=== PATIENT | male | born 1955 | race Caucasian/White ===

== ENCOUNTER → 2017-07-26 | Outpatient (CLI) | payer OTHER ==
[2017-07-26 09:20] LABS: INR 3.3 (<1.2)
[2017-07-26 09:21] LABS: Prothrombin Time 29.2 sec (9.0-12.0)
[2017-07-26 09:27] LABS: ALT 34 U/L (21-72); AST 21 U/L (17-59); Albumin 4.6 g/dL (3.5-5.0); Alkaline Phosphatase 93 U/L (38-126); Anion Gap 12 mmol/L; Blood Urea Nitrogen 10 mg/dL (9-20); Calcium 10.1 mg/dL (8.4-10.2); Carbon Dioxide 28 mmol/L (22-30); Chloride 102 mmol/L (98-107); Cholesterol 139 mg/dL (<200); Glucose 109 mg/dL (74-99); HDL Cholesterol 43 mg/dL (40-60); LDL Cholesterol,Calculated 73 mg/dL (0-99); Potassium 4.1 mmol/L (3.5-5.1); Sodium 142 mmol/L (137-145); Total Bilirubin 0.6 mg/dL (0.2-1.3); Total Protein 7.5 g/dL (6.3-8.2); Triglycerides 113 mg/dL (<150)
== END | disposition home or self-care (01) ==
LOC: LABWHC1 08:34
PROVIDERS: ATTEND Internal Medicine Clinical Cardiac Electrophysiology
DX: I48.91 Unspecified atrial fibrillation (principal); Z79.899 Other long term (current) drug therapy
CPT/HCPCS: 36415; 80053; 80061; 84443; 85610

== ENCOUNTER → 2017-08-01 | Outpatient (CLI) | payer OTHER ==
--- NOTE | 2017-08-01 12:57 | CT ---
EXAMINATION TYPE: CT chest wo con DATE OF EXAM: 08/01/2017 COMPARISON: NONE HISTORY: SOB, pain CT DLP: 240 mGycm, Automated exposure control for dose reduction was used. CONTRAST: None. TECHNIQUE: High-resolution images were obtained at 1 mm thick sections at 10 mm intervals. This will create some limitation on the interpretation. Imaging is performed in the prone and supine views. FINDINGS: Portion of the thyroid visualized is normal. No suspicious lung nodules or focal infiltrates are present. No bronchiectasis is evident. Some perib ronchial thickening may be present compatible some mild chronic bronchitis. No discrete masses are ev ident. No enlarged mediastinal or hilar adenopathy is evident. Shotty mediastinal adenopathy is present. T he ascending aorta diameter at the level of the main pulmonary artery is 3.5 cm. The main pulmonary artery diameter at the bifurcation is 3.[address] sections are obtained through the upper abdomen. Abdomen is essentially unremarkable. IMPRESSIONS: 1. Some mild chronic bronchitis is not excluded. 2. Suspicious acute changes are not evident.
== END | disposition home or self-care (01) ==
LOC: RADCTMAIN 07:22
PROVIDERS: ATTEND Internal Medicine Clinical Cardiac Electrophysiology
DX: I48.91 Unspecified atrial fibrillation (principal); R06.02 Shortness of breath; R07.9 Chest pain, unspecified; Z79.899 Other long term (current) drug therapy
CPT/HCPCS: 71250

== ENCOUNTER 2019-01-15 09:07 | Observation (INO) | payer OTHER ==
[2019-01-15] MEDS ORDERED: KETOROLAC 30 MG/ML 1 ML VIAL IVP STA (09:37)
--- NOTE | 2019-01-15 09:41 | ED ---
Chest Pain HPI - General Chief Complaint: Chest Pain Stated Complaint: chest pain Time Seen by Provider: 01/15/19 09:32 Source: patient, EMS, RN notes reviewed Mode of arrival: EMS Limitations: no limitations - History of Present Illness Initial Comments: This a 63-year-old male presents emergency Department with chief complaint of chest discomfort. Patient states pain started this morning left-sided his chest. Patient had recurrent chest pain in which she does see Dr. Kj Mckeon. Patient's had A. fib in the past. Patient states he was recently taken off amiodarone. Patient states that he was told neck 70 started having symptoms that he may need a pacemaker. Patient does have a history of hyperlipidemia hypertension. Patient denies any nausea vomiting diarrhea constipation. Patient states that the nitro given by EMS did help he was also given aspirin. Patient denies any current shortness of breath. Patient does take Coumadin daily secondary to his chronic A. fib. - Related Data Home Medications Medication Instructions Recorded Confirmed Lisinopril [Zestril] 5 mg PO QAM 02/27/14 01/15/19 Spironolactone [Aldactone] 25 mg PO QAM 10/07/15 01/15/19 Warfarin Sodium [Coumadin] 5 mg PO QAM 03/03/16 01/15/19 Atorvastatin [Lipitor] 10 mg PO HS 01/15/19 01/15/19 Allergies Allergy/AdvReac Type Severity Reaction Status Date / Time No Known Allergies Allergy Verified 01/15/19 09:43 Review of Systems ROS Statement: Those systems with pertinent positive or pertinent negative responses have been documented in the HPI. ROS Other: All systems not noted in ROS Statement are negative. EKG Findings - EKG Comments: EKG Findings:: EKG 49:32 sinus tachycardia rate of 128 WA 168 QRS 104 QT/QTC 328/478 Past Medical History Past Medical History: Atrial Fibrillation, Chest Pain / Angina, Hyperlipidemia, Hypertension Additional Past Medical History / Comment(s): See Dr Radford's h&p for cardiac history 03/03/16. Afib, Ablations x 4, PAOLA does not tolerate CPAP. History of Any Multi-Drug Resistant Organisms: None Reported Past Surgical History: Cardiac Ablation, Orthopedic Surgery Additional Past Surgical History / Comment(s): arthroscopic left knee sx, colonoscopy with benign polyps removed from colon, 4 cardiac ablations, TEEs. Past Anesthesia/Blood Transfusion Reactions: No Reported Reaction Past Psychological History: No Psychological Hx Reported Smoking Status: Former smoker Past Alcohol Use History: None Reported Past Drug Use History: Marijuana - Past Family History Father Family Medical History: Cancer Additional Family Medical History / Comment(s): Father of prostate cancer. Mother Family Medical History: Dementia General Exam Limitations: no limitations General appearance: alert, in no apparent distress, anxious Head exam: Present: atraumatic, normocephalic, normal inspection Eye exam: Present: normal appearance, PERRL, EOMI. Absent: scleral icterus, conjunctival injection, periorbital swelling ENT exam: Present: normal exam, normal oropharynx, mucous membranes moist Neck exam: Present: normal inspection, full ROM. Absent: tenderness, meningismus, lymphadenopathy Respiratory exam: Present: normal lung sounds bilaterally, chest wall tenderness (Left anterior chest wall tenderness). Absent: respiratory distress, wheezes, rales, rhonchi, stridor Cardiovascular Exam: Present: normal rhythm, tachycardia (Patient is very anxious), normal heart sounds. Absent: regular rate, systolic murmur, diastolic murmur, rubs, gallop, clicks GI/Abdominal exam: Present: soft, normal bowel sounds. Absent: distended, tenderness, guarding, rebound, rigid Course Vital Signs 01/15/19 01/15/19 01/15/19 09:08 09:49 10:06 Temperature 98.0 F Pulse Rate 129 H 120 H Pulse Rate [ 128 H Stock Checker ] Respiratory 18 22 Rate Blood Pressure 97/74 95/79 O2 Sat by Pulse 98 96 Oximetry Chest Pain [facility] 53-year-old male presented for chest discomfort. Patient had recurrent chest pain which she's been evaluated by cardiology with a history of A. fib. Patient came in sinus tachycardia pain relieved with nitro. Patient be admitted for chest pain observation and cardiology evaluation. Disposition Clinical Impression: Chest pain Disposition: ADMITTED IP TO THIS [facility] Condition: Fair Referrals: Randell Christian MD [Primary Care Provider] - 1-2 days
[2019-01-15 10:02] LABS: Basophils % (A) 0 %; Eosinophils # (A) 0.1 k/uL (0-0.7); Eosinophils % (A) 1 %; HCT 46.1 % (39.0-53.0); HGB 15.9 gm/dL (13.0-17.5); Lymphocytes # (A) 2.4 k/uL (1.0-4.8); Lymphocytes % (A) 26 %; MCH 30.9 pg (25.0-35.0); MCHC 34.4 g/dL (31.0-37.0); MCV 89.8 fL (80.0-100.0); Mean Platelet Volume 10.2; Monocytes # (A) 0.5 k/uL (0-1.0); Monocytes % (A) 6 %; Neutrophils # (A) 5.9 k/uL (1.3-7.7); Neutrophils % (A) 65 %; Platelet Count 311 k/uL (150-450); RBC 5.13 m/uL (4.30-5.90); RDW 14.2 % (11.5-15.5); WBC 9.1 k/uL (3.8-10.6)
--- NOTE | 2019-01-15 10:41 | XR ---
EXAMINATION TYPE: XR chest 2V DATE OF EXAM: 01/15/2019 COMPARISON: 02/11/2016 TECHNIQUE: PA and lateral views submitted. HISTORY: Chest pain FINDINGS: The lungs are clear and there is no pneumothorax, pleural effusion, or focal pneumonia. Hyperinflat ion suggests COPD in the heart is mildly prominent. Upper atrophic and degenerative changes of the sp ine. IMPRESSION: 1. No acute process.
[2019-01-15 11:09] LABS: ALT 24 U/L (21-72); AST 25 U/L (17-59); African American GFR (CKD) >90 (>60 ml/min/1.73 sqM); Albumin 3.9 g/dL (3.5-5.0); Alkaline Phosphatase 85 U/L (38-126); Anion Gap 10 mmol/L; Blood Urea Nitrogen 11 mg/dL (9-20); Calcium 9.4 mg/dL (8.4-10.2); Carbon Dioxide 20 mmol/L (22-30); Chloride 110 mmol/L (98-107); Glucose 109 mg/dL (74-99); Magnesium 1.9 mg/dL (1.6-2.3); Non-African American GFR(CKD) >90 (>60 ml/min/1.73 sqM); Potassium 3.9 mmol/L (3.5-5.1); Sodium 140 mmol/L (137-145); Total Bilirubin 0.8 mg/dL (0.2-1.3); Total Protein 6.7 g/dL (6.3-8.2)
[2019-01-15 11:18] LABS: INR 3.3 (<1.2); Partial Thromboplastin Time 36.4 sec (22.0-30.0); Prothrombin Time 31.6 sec (9.0-12.0)
[2019-01-15] MEDS ORDERED: NITROGLYCERIN SL TABS 0.4 MG TAB SUBLINGUAL PRN (11:35)
[2019-01-15 13:39] VITALS: BMI 32.1
--- NOTE | 2019-01-15 15:48 | P.CRDCN ---
History of Present Illness History of present illness: This is a pleasant 63-year-old male past medical history significant for atrial fibrillation status post ablation, hypertension, NSVT, dyslipidemia and obstructive sleep apnea. He follows in the office with Dr. Anna. We have been asked to see him in consultation secondary to chest discomfort. He states he was woken up abruptly at 6:30 this morning with discomfort in his ch est described as a pounding punching feeling. He states it felt like a very hard thump in the left precordial region. This was associated with significant shortness of breath. He states he notified EMS and upon arrival to give him some more nitroglycerin which subsided his chest discomfort. He follows very closely with Dr. Anna in the office. He has been on flecanide, sotolol and amiodarone in the past with no success at controlling his atrial fibrillation. He has also undergone 5 ablations in the past starting in 2005 with an EP study and ablation of the supraventricular tachycardia/atrial fibrillation; 2006 EP study, mapping and radiofrequency ablation of atrial fibrillation; 2007 EP study, radiofrequency ablation of the left atrial appendage and radiofrequency ablation to isolate all 4 pulmonary veins; 2011 arterial isolation of the left- sided veins, 3-D mapping of the left atrium, right atrium and coronary sinus, radiofrequency ablation of atrial tachycardia focus; and 2014 diagnostic EP study revealing typical atrial flutter and successful radiofrequency ablation for atrial flutter. EKG reveals atrial tachycardia or atrial flutter with 2:1 conduction heart rate 128 with first degree AV block. Chest x-ray is negative for acute cardiopulmonary process. Laboratory data reviewed, cardiac enzymes negative 1, INR 3.3, WBC 9.1, hemoglobin 15.9, platelets 311, sodium 140, potassium 3.9, creatinine 0.76 magnesium 1.9. Current cardiac medications include lisinopril 5 mg daily, Aldactone 25 mg daily, atorvastatin 20 mg daily and Coumadin. Most recent stress test performed in the office March 2018 was a Cardiolite stress test was negative for reversible cardiac ischemia. At the time of my exam: CONSTITUTIONAL: Denies fever. Denies chills. EYES: Denies blurred vision. Denies vision changes. Denies eye pain. EARS, NOSE, MOUTH & THROAT: Denies headache. Denies sore throat. Denies ear pain. CARDIOVASCULAR: Denies chest pain. Denies shortness of breath. Denies orthopnea. Denies PND. Denies palpitations. RESPIRATORY: Denies cough. GASTROINTESTINAL: Denies abdominal pain. Denies diarrhea. Denies constipation. Denies nausea. Denies vomiting. MUSCULOSKELETAL: Denies myalgias. INTEGUMENTARY: Denies pruitis. Denies rash. NEUROLOGIC: Denies numbness. Denies tingling. Denies weakness. PSYCHIATRIC: Denies anxiety. Denies depression. ENDOCRINE: Denies fatigue. Denies weight change. Denies polydipsia. Denies polyurina. GENITOURINARY: Denies burning, hematuria or urgency with micturation. HEMATOLOGIC: Denies history of anemia. Denies bleeding. Blood pressure 114/84 heart rate 127 afebrile maintaining oxygen saturation on room air GENERAL: This is a 63-year-old male in no apparent distress at the time of my examination. HEENT: Head is atraumatic, normocephalic. Pupils are equal, round. Sclerae anicteric. Conjunctivae are clear. Mucous membranes of the mouth are moist. Neck is supple. There is no jugular venous distention. No carotid bruit is heard. LUNGS: Clear to auscultation no wheezes, rales or rhonchi. No chest wall tenderness is noted on palpation or with deep breathing. HEART: Regular rate and rhythm without murmurs, rubs or gallops. S1 and S2 heard. ABDOMEN: Soft, nontender. Bowel sounds are heard. No organomegaly noted. EXTREMITIES: No evidence of peripheral edema and no calf tenderness noted. VASCULAR: Radial and dorsalis pedis pulses palpated, no evidence of clubbing. NEUROLOGIC: Patient is awake, alert and oriented x3. ASSESSMENT Chest pain, atypical for angina. Recent stress test normal in the office 03/2018. Paroxysmal atrial fibrillation s/p ablation Hypertension Dyslipidemia Obstructive sleep apnea PLAN Initiate on multaq 400 mg BID. We will ask case management to check the monthly cost for the patient. Continue to obtain serial cardiac enzymes to rule out an acute event. Repeat echocardiogram and doppler study to assess cardiac structure and function. Further recommendations to follow based on clinical course. Thank you kindly for this consultation. Nurse Practitioner note has been reviewed, I agree with a documented findings and plan of care. Patient was seen and examined. . Past Medical History Past Medical History: Atrial Fibrillation, Chest Pain / Angina, Hyperlipidemia, Hypertension Additional Past Medical History / Comment(s): See Dr Radford's h&p for cardiac history 03/03/16. Afib, Ablations x 5, PAOLA does not tolerate CPAP. History of Any Multi-Drug Resistant Organisms: None Reported Past Surgical History: Cardiac Ablation, Orthopedic Surgery Additional Past Surgical History / Comment(s): arthroscopic left knee sx, colonoscopy with benign polyps removed from colon, 5 cardiac ablations, TEEs. 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 Smoking Status: Former smoker Past Alcohol Use History: None Reported Additional Past Alcohol Use History / Comment(s): Pt states he started smoking in 2008 and quit in 2014. Past Drug Use History: Marijuana Additional Drug Use History / Comment(s): SMOKED MARIJUANA OCC IN THE PAST - Past Family History Father Family Medical History: Cancer Additional Family Medical History / Comment(s): Father of prostate cancer. Mother Family Medical History: Dementia Medications and Allergies Home Medications Medication Instructions Recorded Confirmed Type Lisinopril [Zestril] 5 mg PO QAM 02/27/14 01/15/19 History Spironolactone [Aldactone] 25 mg PO QAM 10/07/15 01/15/19 History Warfarin Sodium [Coumadin] 5 mg PO QAM 03/03/16 01/15/19 History Atorvastatin [Lipitor] 10 mg PO HS 01/15/19 01/15/19 History Dronedarone [Multaq] 400 mg PO AC-BID #60 tab 01/15/19 Rx Allergies Allergy/AdvReac Type Severity Reaction Status Date / Time No Known Allergies Allergy Verified 01/15/19 09:43 Physical Exam Vitals: Vital Signs Temp Pulse Pulse Pulse Resp BP BP 01/15/19 13:12 98.1 F 127 H 17 114/84 01/15/19 13:02 98.2 F 118 H 18 111/84 01/15/19 12:09 114 H 20 123/85 01/15/19 10:06 120 H 22 95/79 01/15/19 09:49 128 H 01/15/19 09:08 98.0 F 129 H 18 97/74 Pulse Ox 01/15/19 13:12 97 01/15/19 13:02 97 01/15/19 12:09 98 01/15/19 10:06 96 01/15/19 09:49 01/15/19 09:08 98 Intake and Output 01/14/19 01/15/19 01/15/19 22:59 06:59 14:59 Other: # Voids 1 Weight 98.792 kg Results 01/15/19 09:25 01/15/19 10:25 Cardiac Enzymes 01/15/19 01/15/19 Range/Units 10:25 10:25 AST 25 (17-59) U/L Troponin I <0.012 (0.000-0.034) ng/mL Coagulation 01/15/19 Range/Units 09:25 PT 31.6 H (9.0-12.0) sec APTT 36.4 H (22.0-30.0) sec CBC 01/15/19 Range/Units 09:25 WBC 9.1 (3.8-10.6) k/uL RBC 5.13 (4.30-5.90) m/uL Hgb 15.9 (13.0-17.5) gm/dL Hct 46.1 (39.0-53.0) % Plt Count 311 (150-450) k/uL Comprehensive Metabolic Panel 01/15/19 Range/Units 10:25 Sodium 140 (137-145) mmol/L Potassium 3.9 (3.5-5.1) mmol/L Chloride 110 H (98-107) mmol/L Carbon Dioxide 20 L (22-30) mmol/L BUN 11 (9-20) mg/dL Creatinine 0.76 (0.66-1.25) mg/dL Glucose 109 H (74-99) mg/dL Calcium 9.4 (8.4-10.2) mg/dL AST 25 (17-59) U/L ALT 24 (21-72) U/L Alkaline Phosphatase 85 (38-126) U/L Total Protein 6.7 (6.3-8.2) g/dL Albumin 3.9 (3.5-5.0) g/dL Current Medications Generic Name Dose Route Start Last Admin Trade Name Freq PRN Reason Stop Dose Admin Aspirin 325 mg 01/16/19 09:00 Aspirin PO DAILY [facility] Lisinopril 5 mg 01/16/19 09:00 Zestril PO QAM [facility] Nitroglycerin 0.4 mg 01/15/19 11:35 Nitrostat SUBLINGUAL Q5M PRN Chest Pain Spironolactone 25 mg 01/16/19 09:00 Aldactone PO QAM [facility] Warfarin Sodium 5 mg 01/16/19 18:00 Coumadin PO DAILY@1800 [facility] Intake and Output 01/14/19 01/15/19 01/15/19 22:59 06:59 14:59 Other: # Voids 1 Weight 98.792 kg Patient Weight 01/16/19 06:59 Weight 98.792 kg 01/15/19 09:25 01/15/19 10:25
[2019-01-15] MEDS: DRONEDARONE 400 MG TAB PO SCH (18:56)
--- NOTE | 2019-01-15 21:39 | PN ---
PROGRESS NOTE Mr. Rangel was seen earlier by my nurse practitioner. I came in to evaluate the patient. He is currently in atrial flutter fibrillation with a rate in the 90s. On arrival, his EKG suggests either atrial tachycardia or atrial flutter with a 2 as to 1 block at a rate of about 130 beats per minute. However, he was tried on various medications including amiodarone which was the last medication, but he has a breakthrough arrhythmia. I am recommending that we will continue his current medical regimen at this time. I will speak to Dr. Anna and apparently there was a discussion about trying Multaq on this patient. I am not sure of the benefit of Multaq having had a failure with amiodarone. His vitals are stable. He is tolerating the arrhythmia well. He came in with a feeling of pounding in the chest and chest discomfort as well. I am doing some serial troponins. An echo was also ordered. I will review the echocardiogram, perform serial troponins and will speak to Dr. Anna. The patient has been initiated on Multaq presumably with Dr. Anna's discussion, but I will speak to him if he has any other thoughts and if his rate is reasonably well controlled, he could potentially be discharged and see him in the office for further management. The patient is comfortable, resting, without symptoms at this time. MMODL / IJN: [id number] /
[2019-01-16 07:15] LABS: Cholesterol 126 mg/dL (<200); HDL Cholesterol 29 mg/dL (40-60); LDL Cholesterol,Calculated 66 mg/dL (0-99); Triglycerides 155 mg/dL (<150)
[2019-01-16 07:19] LABS: INR 2.9 (<1.2); Prothrombin Time 27.7 sec (9.0-12.0)
[2019-01-16 08:17] VITALS: BP 116/73; PULSE 66; RESP 18; TEMP 97.7
[2019-01-16] MEDS ORDERED: LISINOPRIL 5 MG TAB PO SCH (09:00)
[2019-01-16] MEDS ORDERED: ASPIRIN 325 MG TAB PO SCH (09:00)
[2019-01-16] MEDS ORDERED: SPIRONOLACTONE 25 MG TAB PO SCH (09:00)
[2019-01-16] MEDS ORDERED: ASPIRIN 81 MG PO SCH (09:00)
--- NOTE | 2019-01-16 09:10 | P.PN ---
Subjective This is a pleasant 63-year-old male past medical history significant for atrial fibrillation status post ablation, hypertension, NSVT, dyslipidemia and obstructive sleep apnea. He follows in the office with Dr. Anna. We have been asked to see him in consultation secondary to chest discomfort. He states he was woken up abruptly at 6:30 this morning with discomfort in his chest described as a pounding punching feeling. He states it felt like a very hard thump in the left precordial region. This was associated with significant shortness of breath. He states he notified EMS and upon arrival to give him some more nitroglycerin which subsided his chest discomfort. He follows very closely with Dr. Anna in the office. He has been on flecanide, sotolol and amiodarone in the past with no success at controlling his atrial fibrillation. He has also undergone 5 ablations in the past starting in 2005 with an EP study and ablation of the supraventricular tachycardia/atrial fibrillation; 2006 EP study, mapping and radiofrequency ablation of atrial fibrillation; 2007 EP study, radiofrequency ablation of the left atrial appendage and radiofrequency ablation to isolate all 4 pulmonary veins; 2011 arterial isolation of the left- sided veins, 3-D mapping of the left atrium, right atrium and coronary sinus, radiofrequency ablation of atrial tachycardia focus; and 2014 diagnostic EP study revealing typical atrial flutter and successful radiofrequency ablation for atrial flutter. 01/16/2019 Pt is seen and examined laying flat in bed in no acute distress. He denies any further feelings of chest discomfort. Telemetry tracings reviewed and indicate he is now in sinus mechanism. Blood pressure 116/73 heart rate 66 afebrile and maintaining oxygen saturation on room air. Laboratory data reviewed, INR 2.9, cardiac enzymes negative 3 and LDL 66. Multaq prior authorization is pending per case mgmt. GENERAL: This is a 63-year-old male in no apparent distress at the time of my examination. HEENT: Head is atraumatic, normocephalic. Pupils are equal, round. Sclerae anicteric. Conjunctivae are clear. Mucous membranes of the mouth are moist. Neck is supple. There is no jugular venous distention. No carotid bruit is heard. LUNGS: Clear to auscultation no wheezes, rales or rhonchi. No chest wall tenderness is noted on palpation or with deep breathing. HEART: Regular rate and rhythm without murmurs, rubs or gallops. S1 and S2 heard. EXTREMITIES: No evidence of peripheral edema and no calf tenderness noted. ASSESSMENT Chest pain, atypical for angina. Recent stress test normal in the office 03/2018. Paroxysmal atrial fibrillation s/p ablation Hypertension Dyslipidemia Obstructive sleep apnea PLAN An acute coronary event has been ruled out. He has converted to sinus mechanism. Stable for discharge from a cardiac perspective. Follow up appointment has been made in the office later in the week for ongoing discussion. Nurse Practitioner note has been reviewed, I agree with a documented findings and plan of care. Patient was seen and examined. Objective - Vital Signs Vital signs: Vital Signs Temp 97.7 F 01/16/19 07:05 Pulse 66 01/16/19 07:05 Resp 18 01/16/19 07:05 BP 116/73 01/16/19 07:05 Pulse Ox 97 01/16/19 07:05 Intake & Output 01/15/19 01/16/19 01/16/19 18:59 06:59 18:59 Weight 98.792 kg Other: Voiding Method Toilet # Voids 1 2 - Labs CBC & Chem 7: 01/15/19 09:25 01/15/19 10:25 Labs: Abnormal Lab Results - Last 24 Hours (Table) 01/15/19 01/15/19 01/16/19 Range/Units 09:25 10:25 06:29 PT 31.6 H (9.0-12.0) sec INR 3.3 H (<1.2) APTT 36.4 H (22.0-30.0) sec Chloride 110 H (98-107) mmol/L Carbon Dioxide 20 L (22-30) mmol/L Glucose 109 H (74-99) mg/dL Triglycerides 155 H (<150) mg/dL HDL Cholesterol 29 L (40-60) mg/dL 01/16/19 Range/Units 06:29 PT 27.7 H (9.0-12.0) sec INR 2.9 H (<1.2) APTT (22.0-30.0) sec Chloride (98-107) mmol/L Carbon Dioxide (22-30) mmol/L Glucose (74-99) mg/dL Triglycerides (<150) mg/dL HDL Cholesterol (40-60) mg/dL
[2019-01-16] MEDS: DRONEDARONE 400 MG TAB PO SCH (09:21)
--- NOTE | 2019-01-16 10:46 | P.PN ---
Progress Note - Text Samples of Multaq will be provided through the office. Patient is to go to the office upon discharge to pick them up. agronomy location manager updated. Office staff will continue to work on the prior authorization.
[2019-01-16] MEDS ORDERED: WARFARIN 5 MG TAB PO SCH (18:00)
--- NOTE | 2019-01-16 18:34 | ECHOF ---
Referral Reason:cp MEASUREMENTS -------- HEIGHT: 175.3 cm WEIGHT: 98.4 kg BP: 98/66 RVIDd: 3.5 cm (< 3.3) IVSd: 1.6 cm (0.6 - 1.1) LVIDd: 5.2 cm (3.9 - 5.3) LVPWd: 1.6 cm (0.6 - 1.1) IVSs: 2.0 cm LVIDs: 3.6 cm LVPWs: 1.9 cm LA Diam: 4.2 cm (2.7 - 3.8) LAESV Index (A-L): 24.99 ml/m Ao Diam: 3.3 cm (2.0 - 3.7) AV Cusp: 2.3 cm (1.5 - 2.6) MV EXCURSION: 19.783 mm (> 18.000) MV EF SLOPE: 143 mm/s (70 - 150) EPSS: 0.8 cm MV E Teja: 0.86 m/s MV DecT: 167 ms MV A Teja: 0.43 m/s MV E/A Ratio: 2.02 AR PHT: 619 ms RAP: 5.00 mmHg RVSP: 23.84 mmHg FINDINGS -------- Sinus rhythm. This was a technically good study. The left ventricular size is normal. There is moderate concentric left ventricular hypertrophy. O verall left ventricular systolic function is mildly impaired with, an EF between 45 - 50 %. The right ventricle is mildly enlarged. Normal LA size by volume 22+/-6 ml/m2. The right atrium is normal in size. Interatrial and interventricular septum intact. There is mild aortic valve sclerosis. The mitral valve leaflets are mildly thickened. Mild mitral annular calcification present. Mild-t o-moderate mitral regurgitation is present. Mild tricuspid regurgitation present. Right ventricular systolic pressure is normal at < 35 mmHg. Trace/mild (physiologic) pulmonic regurgitation. The aortic root size is normal. Normal inferior vena cava with normal inspiratory collapse consistent with estimated right atrial pre ssure of 5 mmHg. There is no pericardial effusion. CONCLUSIONS -------- 1. Sinus rhythm. 2. This was a technically good study. 3. The left ventricular size is normal. 4. There is moderate concentric left ventricular hypertrophy. 5. The right ventricle is mildly enlarged. 6. Normal LA size by volume 22+/-6 ml/m2. 7. The right atrium is normal in size. 8. Interatrial and interventricular septum intact. 9. There is mild aortic valve sclerosis. 10. The mitral valve leaflets are mildly thickened. 11. Mild mitral annular calcification present. 12. [id number] mitral regurgitation is present. 13. Mild tricuspid regurgitation present. 14. Right ventricular systolic pressure is normal at < 35 mmHg. 15. Trace/mild (physiologic) pulmonic regurgitation. 16. The aortic root size is normal. 17. Normal inferior vena cava with normal inspiratory collapse consistent with estimated right atrial pressure of 5 mmHg. 18. There is no pericardial effusion. BULL FLOAT FINISHER: Jenise Dennison RDCS
--- NOTE | 2019-01-16 22:17 | HP ---
HISTORY AND PHYSICAL CHIEF COMPLAINT: Chest pain, shortness of breath. HISTORY OF PRESENT ILLNESS: This is another admission for this 63-year-old white male who has a longstanding history of coronary artery disease, atrial fibrillation, hyperlipidemia, and COPD. He has been fairly stable and has done well until he got up from a nap last night and had the onset of substernal pressure, discomfort with shortness of breath and came to emergency room. Studies in the ER were negative. He is admitted for observation. REVIEW OF SYSTEMS: He has had no syncope, nausea, vomiting, diaphoresis, etc. He has had no change in vision or hearing, syncope, fever and chills, cough, hemoptysis, abdominal pain, nausea, vomiting, melena, hematochezia, jaundice, hematuria, frequency, urgency, renal failure, diabetes, etc. Past medical history, family history, personal and social histories reveal he is not allergic to any medication. Takes Coumadin 4 mg once a day. Atorvastatin 40 mg q.h.s., Aldactone 25 once a day, and lisinopril 5 mg once a day. The remainder his history is unremarkable. He does not smoke. PHYSICAL EXAMINATION: Blood pressure is 102/78, pulse of 80, and irregularly irregular, respirations of 12, and he is afebrile. GENERAL: He appeared to be well developed, well nourished, no acute distress. Skin color is normal. Skin is warm, dry. Lymph nodes not enlarged. Head, ears, eyes, nose, mouth, and throat were normal. Neck veins not distended. Thyroid is not enlarged. Chest is clear to auscultation and percussion. Cardiac exam demonstrated atrial fibrillation with no murmurs or extra sounds. Abdomen is soft and nontender without visceromegaly or masses. Bowel sounds are present. Extremities: Normal. Neurologically, he is intact. IMPRESSION: 1. Chest pain. 2. Coronary artery disease. 3. Atrial fibrillation. PLAN: 1. Bedrest. 2. Serial EKGs and enzymes. 3. Cardiology consult. MMODL / IJN: [id number] /
--- NOTE | 2019-01-16 23:14 | DS ---
DISCHARGE SUMMARY CHIEF COMPLAINT: Chest pain and shortness of breath. HISTORY OF PRESENT ILLNESS AND PHYSICAL EXAM: The details of this man's history and physical can be found in the initial workup. LABORATORY STUDIES: While he was in the hospital, he had laboratory studies, details of which can be found laboratory section of his chart. COURSE IN HOSPITAL: After admission, he was placed on bedrest, started on intravenous fluids. He had serial EKGs and enzymes as well as an echocardiogram. He was seen by Cardiology. Studies were essentially unremarkable and he was released by Cardiology and he will go home on his usual activity, diet, medication and be seen in the office in several days. FINAL DIAGNOSES: 1. Unstable angina pectoris. 2. Coronary artery disease. 3. Atrial fibrillation. OPERATIONS: None. CONSULTATIONS: Cardiology. He is improved. REBECCA / TYESHA: [id number] /
== END 2019-01-16 12:25 | disposition home or self-care (01) ==
LOC: EC 09:07 → 1SOBS 12:33
PROVIDERS: ADMIT Family Medicine; ATTEND Family Medicine
DX: I25.110 Atherosclerotic heart disease of native coronary artery with unstable angina pectoris (principal); I48.0 Paroxysmal atrial fibrillation; I10 Essential (primary) hypertension; E78.5 Hyperlipidemia, unspecified; G47.33 Obstructive sleep apnea (adult) (pediatric); I47.1 Supraventricular tachycardia; I44.0 Atrioventricular block, first degree; I48.92 Unspecified atrial flutter; J44.9 Chronic obstructive pulmonary disease, unspecified; Z79.01 Long term (current) use of anticoagulants; Z79.899 Other long term (current) drug therapy; Z86.010 Personal history of colon polyps; Z87.891 Personal history of nicotine dependence; Z80.42 Family history of malignant neoplasm of prostate; Z81.8 Family history of other mental and behavioral disorders
CPT/HCPCS: 96374; 99285; 36415; 93005; 93306; 83880; 80061; 80053; 83690; 83735; 84484; 85025; 85610 ×2; 85730; 71046; G0378 ×2; J1885

== ENCOUNTER → 2019-02-20 | Outpatient (CLI) | payer OTHER ==
[2019-02-20 11:37] LABS: African American GFR (CKD) >90 (>60 ml/min/1.73 sqM); Anion Gap 9 mmol/L; Blood Urea Nitrogen 12 mg/dL (9-20); Carbon Dioxide 28 mmol/L (22-30); Chloride 104 mmol/L (98-107); Glucose 103 mg/dL (74-99); Potassium 4.8 mmol/L (3.5-5.1); Sodium 141 mmol/L (137-145)
[2019-02-20 12:10] LABS: HCT 50.5 % (39.0-53.0); HGB 16.4 gm/dL (13.0-17.5); MCH 30.1 pg (25.0-35.0); MCHC 32.6 g/dL (31.0-37.0); MCV 92.3 fL (80.0-100.0); Mean Platelet Volume 7.8; Platelet Count 278 k/uL (150-450); RBC 5.47 m/uL (4.30-5.90); RDW 15.9 % (11.5-15.5); WBC 9.2 k/uL (3.8-10.6)
== END | disposition home or self-care (01) ==
LOC: LABPAT 09:52
PROVIDERS: ATTEND Internal Medicine Clinical Cardiac Electrophysiology
DX: Z01.812 Encounter for preprocedural laboratory examination (principal); I47.1 Supraventricular tachycardia; I48.1 Persistent atrial fibrillation
CPT/HCPCS: 36415; 80051; 82565; 82947; 84520; 85027

== ENCOUNTER 2019-03-05 05:46 | Day surgery (SDC) | payer OTHER ==
[2019-03-05] MEDS ORDERED: SODIUM CHLORIDE 0.9% 1,000 ML IV ONE ×2 (06:44→10:50)
[2019-03-05] MEDS ORDERED: ISOPROTERENOL 250 MCG/1.25 ML SYR IV ONE (07:32)
[2019-03-05] MEDS ORDERED: PROPOFOL 10 MG/ML 20 ML VIAL IV ONE (07:32)
[2019-03-05] MEDS ORDERED: diphenhydrAMINE 50 MG/ML 1 ML VIAL ONE (07:32)
[2019-03-05] MEDS ORDERED: MIDAZOLAM 2 MG/2 ML VIAL ONE (07:32)
[2019-03-05] MEDS ORDERED: fentaNYL (PF) 50 MCG/ML 2 ML AMP ONE (07:32)
[2019-03-05] MEDS ORDERED: KETAMINE 10 MG/ML 20 ML VIAL ONE (07:32)
[2019-03-05 07:55] LABS: INR 1.9 (<1.2); Prothrombin Time 18.8 sec (9.0-12.0)
[2019-03-05] MEDS ORDERED: LIDOCAINE 1% INJ 10MG/ML (20 ML MDV) SQ ONE (08:05)
--- NOTE | 2019-03-05 08:38 | P.HPCAR ---
History of Present Illness This is Dr. Anna dictating an H&P on this patient The patient was interviewed and examined by me IMPRESSION / ASSESSMENT: Recurrent symptomatic atrial tachycardia with 21 AV block, paroxysmal, failed multiple medications including sotalol, flecainide amiodarone and most recently Multaq We have asymptomatic episodes associated with chest discomfort, multiple hospitalizations on account of these episodes Past history of atrial fibrillation status post pulmonary vein isolation as well as linear and focal ablation in the past Hypertension Dyslipidemia PLAN: Diagnostic EP study to induce atrial tachycardia Ablation for atrial tachycardia if inducible Discussed with the patient in detail Patient is appropriately anticoagulated on Coumadin with therapeutic INRs in the recent past HPI Recurrent episodes of palpitations which are symptomatic and associated with both palpitations and chest discomfort resulting in multiple hospitalizations He is documented paroxysms of atrial tachycardia with 2-1 AV block with skinny P waves in lead V2 which are upright in the inferior leads and biphasic in lead 1 Today he is normal irregular rhythm. He denies any chest discomfort dizziness lightheadedness or palpitations. Last few days He has no fever chills cough expectoration no-cost or should symptoms no primary symptoms no urinary symptoms no abdominal symptoms He is not orthopnea PND or loss of consciousness since last seen ROS: No fever chills or rigors, no cough, phlegm or expectoration, no nausea, vomiting or diarrhea, no hematuria, dysuria, no musculoskeletal complaints, no strokes or seizures, no skin lesions. EXAMINATION: 98.4F, pulse rate in the 50s, normal respirations nonlabored blood pressure 10 7/63 mmHg 98% O2 sat on room air No orthopnea Breath sounds are clear no rhonchi no crackles Abdomen is soft nontender External days are warm no edema Normal heart sounds normal S1 normal S2 REVIEW OF LABS, ECG & MEDICAL DATA INR 1.9 today Home medications include lisinopril atorvastatin spironolactone and warfarin 4 mg daily Physical Exam Vitals: Vital Signs Temp Pulse Resp BP Pulse Ox 03/05/19 06:38 98.4 F 59 L 18 107/63 98 Intake and Output 03/04/19 03/05/19 03/05/19 22:59 06:59 14:59 Intake Total 20 0 Balance 20 0 Intake: IV 20 0 Past Medical History Past Medical History: Hyperlipidemia, Sleep Apnea/CPAP/BIPAP Additional Past Medical History / Comment(s): See Dr Radford's H&P, no CPAP used, History of Any Multi-Drug Resistant Organisms: None Reported Past Surgical History: Cardiac Ablation, Orthopedic Surgery Additional Past Surgical History / Comment(s): cardiac ablation x 6, left knee arthroscopy, abdominal surgery to removed colon polyp, JJ's Past Anesthesia/Blood Transfusion Reactions: No Reported Reaction Smoking Status: Former smoker - Past Family History Father Family Medical History: Cancer Additional Family Medical History / Comment(s): Father of prostate cancer. Mother Family Medical History: Dementia Physical Examination Vital Signs Temp Pulse Resp BP Pulse Ox 03/05/19 06:38 98.4 F 59 L 18 107/63 98 Intake and Output 03/04/19 03/05/19 03/05/19 22:59 06:59 14:59 Intake Total 20 0 Balance 20 0 Intake: IV 20 0 Results Coagulation 03/05/19 Range/Units 06:25 PT 18.8 H (9.0-12.0) sec Current Medications Generic Name Dose Route Start Last Admin Trade Name Freq PRN Reason Stop Dose Admin Sodium Chloride 1,000 mls @ 50 mls/hr 03/05/19 05:56 Saline 0.9% IV .Q20H ROCIO Intake and Output 03/04/19 03/05/19 03/05/19 22:59 06:59 14:59 Intake Total 20 0 Balance 20 0 Intake: IV 20 0
[2019-03-05] MEDS ORDERED: HEPARIN SODIUM (1,000 UNIT/ML) 1,000 UNIT in SODIUM CHLORIDE 0.9% 1,000 ML IRRIGATION ONE (09:00)
[2019-03-05] MEDS ORDERED: ACETAMINOPHEN TAB 325 MG TAB PO PRN (11:18)
[2019-03-05] MEDS ORDERED: HYDROcodone/APAP 5-325MG 1 EACH TAB PO PRN (11:18)
[2019-03-05] MEDS ORDERED: ACETAMINOPHEN IV (For NPO) 1,000 MG in EMPTY BAG 1 BAG IVPB ONE (11:18)
[2019-03-05 14:21] VITALS: BMI 32.1
[2019-03-05] MEDS ORDERED: WARFARIN 5 MG TAB PO SCH (18:00)
[2019-03-05] MEDS: SODIUM CHLORIDE 0.9% 1,000 ML IV SCH ×2 (20:31→20:34)
--- NOTE | 2019-03-06 00:35 | PCN ---
PROCEDURE NOTE This us a 63-year-old male patient who has a history of atrial fibrillation, persistent. He has undergone multiple atrial fibrillation ablations with complete isolation of all pulmonary veins and linear ablation in the left atrium. He has undergone atrial flutter ablation in the past. He has had recurrent symptomatic episodes of atrial tachycardia with 2-1 conduction, which causes chest discomfort and recurrent hospitalizations. He has failed multiple antiarrhythmic drugs including amiodarone, sotalol, flecainide, and most recently Multaq. He does have a prolonged WA interval at baseline. Patient was brought to the EP lab for a diagnostic EP study and possible radiofrequency ablation only for inducible atrial tachycardia. DESCRIPTION OF PROCEDURE: The procedure was performed under conscious sedation. Right and left groins were prepped and draped as per protocol and one venous sheath in the right femoral vein, 2 venous sheaths in the left femoral vein. Via these, diagnostic and mapping ablation catheters were placed including high right atrial catheter, His bundle catheter, coronary sinus catheter. A PentaRay catheter and later the mapping ablation catheter. Sinus cycle length: 1056 milliseconds. WA interval 279 milliseconds, QRS 130 milliseconds, QT 423 milliseconds. AH interval 59 milliseconds, HV interval 50 milliseconds. Sinus node recovery times at 600/500/400 milliseconds were 1057, 1154 and 1488 milliseconds. AV node Wenckebach block in the baseline state for 10 milliseconds, baseline AH interval 159 milliseconds, baseline HV interval 50 milliseconds. Right bundle branch block aberrancy was noted intermittently with the atrial pacing from the high right atrium. Atrial extra stimulation was performed from the high right atrium up to double extra stimuli. Double extra stimulation from the coronary sinus catheter was performed without induction of any arrhythmias in the baseline state. The burst stimulation was performed. No tachycardia was induced on Isuprel. There was a suggestion of slow pathway conduction at 320 milliseconds. Block in the slow pathway at 290 milliseconds, but there was no clear-cut evidence for AV luiz reentry. With burst stimulation, we were able to induce nonsustained runs of atrial tachycardia. The cycle length on Isuprel between 1-2 mics was about 430 milliseconds. This had a high to low sequence and did originate from the high right atrium. Since this was reasonably consistent, we decided to map these repeat runs of nonsustained atrial tachycardia that were induced with burst stimulation from the coronary sinus. The induction was inconsistent. A PentaRay catheter was then placed in the high right atrium and 3D electro anatomic mapping was performed. It was difficult to induce the nonsustained atrial tachycardia episodes consistently. Tachycardia was also inducible with mechanical stimulation in the in low posterior SVC and upper high right atrium both with the PentaRay catheter and later mapping ablation catheter. It was more consistently induced with mechanical stimulation in this region rather than burst stimulation. A somewhat broad zone of activation was noted just below the SVC on the posterior wall. A detailed map was performed as best as we could, given the fact that the episodes of atrial tachycardia that were induced with electromechanical technician stimulation and with pacing techniques were short-lived. The earliest area underwent more detailed mapping. Following that, mapping and ablation, an irrigated tip ablation catheter was placed and RF ablation was applied at the earliest site. At this site, at atrial tachycardia, was induced during RF ablation, but as the ablation was continued around that area and the entire region that was a broad early activation site, it became harder and harder to induced the atrial tachycardia both with pacing techniques, but most importantly with catheter stimulation. This area was rendered in excitable and high output pacing showed non capture. Prior to that, this area was tested for any phrenic nerve stimulation. None was noted. In addition, the Latonya terminalis on the posterior lateral aspect was also tagged. This broad zone of activation was more posterior to the Latonya terminalis just below the SVC. After RF ablation was successfully performed with contact force ranging between 15-20 g and a power of 25 fuentes. This area was rendered electrically in excitable. Most importantly with mechanical stimulation in the SVC as well as in this region, we could not induce any atrial tachycardia despite being on Isuprel. Burst stimulation was then again performed and the tachycardia could not be induced. With more aggressive stimulation, we were able to induce an atrial fibrillation, but not the clinical atrial tachycardia. Finally once Isuprel was completely washed out, an electrical cardioversion was performed for atrial fibrillation. All catheters were then removed and patient transferred back to telemetry. RESULT: Diagnostic EP study revealing nonsustained runs of atrial tachycardia originating in the high posterior wall of the right atrium just below the SVC. The tachycardia was more easily induced with mechanical stimulation and later when RF energy was turned on at the earliest site. Burst stimulation inconsistently induced nonsustained runs. Sustained atrial tachycardia could never be induced and therefore this was a long procedure because we had to repeatedly induce the tachycardia and perform activation mapping on nonsustained runs whose cycle length and activation pattern matched the clinical tachycardia. A detailed map was performed in the right atrium painstakingly using these nonsustained runs that were inconsistently induced. At the end of the procedure, this high right atrial tachycardia could not be induced. PLAN: Watch for any episodes of atrial fibrillation. If he continues to have recurrent episodes of atrial fibrillation with ventricular tachycardia, then a biventricular pacemaker should be considered since he has a prolonged p.r.n. 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 In case of recurrent atrial tachycardia or atrial fibrillation, Bi-V pacing followed by AV junction modification will be considered and this is already been discussed with the patient previously. MMCONRADO / JUSTINON: [id number] /
--- NOTE | 2019-03-06 00:38 | PCN ---
PROCEDURE NOTE DATE OF SERVICE: 03/05/[address] Christian: Alvarez Rangel underwent a diagnostic EP study. We were not able to induce any sustained atrial arrhythmias, but frequent nonsustained runs of an atrial tachycardia from the high right atrium was seen. This was painstakingly mapped to the posterior wall of the right atrium just below the SVC and successful ablation was performed. However, if he continues to have atrial fibrillation, atrial tachycardia, in the future permanent pacing with AV junction modification will be considered. He does have a prolonged PA interval and therefore it will be difficult to treat him with antiarrhythmic drug therapy as well as AV luiz blocking drugs. He has already failed multiple antiarrhythmic drugs. Thank you for entrusting me in the care of your patient. Warm regards, Sincerely, REBECCA / TYESHA: [id number] /
[2019-03-06 07:23] LABS: Prothrombin Time 19.7 sec (9.0-12.0)
[2019-03-06] MEDS ORDERED: WARFARIN 5 MG TAB PO SCH (08:00)
[2019-03-06 08:25] VITALS: RESP 17
[2019-03-06] MEDS ORDERED: ATORVASTATIN 40 MG TAB PO SCH (09:00)
[2019-03-06] MEDS ORDERED: LISINOPRIL 5 MG TAB PO SCH (09:00)
[2019-03-06] MEDS ORDERED: SPIRONOLACTONE 25 MG TAB PO SCH (09:00)
[2019-03-06 11:30] VITALS: BP 101/66; PULSE 62; TEMP 98.4
--- NOTE | 2019-03-06 14:07 | P.DS ---
Providers Attending physician: Bradley Anna Primary care physician: Randell Morillo [facility] Course: Patient is a 63-year-old male past medical history of atrial fibrillation, hypertension, dyslipidemia, and recurrent palpitations who presented for a diagnostic EP study and possible ablation. Patient had been experiencing recurrent episodes of paroxysmal atrial tachycardia associated with symptoms of palpitations and chest discomfort. He had failed multiple antiarrhythmic medications including sotalol, flecainide, amiodarone, and Multaq. Yesterday, patient underwent successful radiofrequency atrial tachycardia ablation. At the end of the procedure, the high right atrial tachycardia could not be induced. However atrial fibrillation was induced and he underwent an electrical cardioversion. Patient tolerated the procedure well and had no acute events overnight. Patient seen and examined resting comfortably in bed. States he has been able to get up and walk around without any dizziness or lightheadedness. Denies any chest pain, pleuritic chest discomfort, palpitations, shortness of breath, orthopnea, PND. He has been able to eat without any issues. EKG today shows sinus mechanism with first-degree AV block INR was 1.9 on admission, repeat INR today is 2.0 Temperature 98.4F, pulse 62, respirations 17, blood pressure 101/66, oxygen saturation 96% on room air Patient seen and examined resting comfortably in bed, in no acute distress Lungs clear to auscultation bilaterally Heart is regular, normal S1 and S2, no murmurs appreciated No elevated JVD Bilateral groins clean and dry, minimally tender to palpation, no hematomas No lower extremity edema Abdomen soft and nontender Impression symptomatic paroxysmal Atrial tachycardia, status post RF ablation Atrial fibrillation status post PVI, linear and focal ablations Supratherapeutic INR on admission, warfarin dose was adjusted and INR is 2 today First-degree AV block Hypertension, blood pressure has been stable Dyslipidemia Plan Discharge home, follow-up office visit within a week Continue warfarin 5 mg daily, repeat INR and office visit within a week Continue all other home medications If he continues to have atrial fibrillation with RVR, consider a biventricular pacemaker and subsequent AV node modification in the future, he has a prolonged IN interval Plan - Discharge Summary Discharge Rx Participant: No New Discharge Prescriptions: No Action Lisinopril [Zestril] 5 mg PO QAM Spironolactone [Aldactone] 25 mg PO QAM Atorvastatin [Lipitor] 40 mg PO DAILY Warfarin Sodium 4 mg PO HS Discharge Medication List Lisinopril [Zestril] 5 mg PO QAM 02/27/14 [History] Spironolactone [Aldactone] 25 mg PO QAM 10/07/15 [History] Atorvastatin [Lipitor] 40 mg PO DAILY 03/01/19 [History] Warfarin Sodium 4 mg PO HS 03/01/19 [History]
--- NOTE | 2019-03-06 17:12 | PN ---
PROGRESS NOTE CHIEF COMPLAINT: Atrial fibrillation. HISTORY OF PRESENT ILLNESS: This gentleman is doing well. He is feeling fine. He is not aware of palpitations. He had an ablation done yesterday and expects to go home today. PHYSICAL EXAMINATION: Chest is clear. The cardiac exam sounds like he has a regular rate and rhythm. IMPRESSION: Atrial fibrillation, status post ablation. PLAN: Probably home today. MMODL / IJN: [id number] /
[2019-03-06] MEDS ORDERED: WARFARIN 2 MG TAB PO SCH (18:00)
--- NOTE | 2019-03-06 23:33 | CONS ---
CONSULTATION CHIEF COMPLAINT: Supraventricular arrhythmias. HISTORY OF PRESENT ILLNESS: This gentleman has been brought in for an elective attempt at ablation to terminate his atrial fibrillation. REVIEW OF SYSTEMS: He has had no syncope, headaches, chest pain, shortness of breath, orthopnea, PND, abdominal pain, urinary complaints, etc. Past medical history, family history, and personal and social histories are all essentially unremarkable and noncontributory. He does have a history of COPD and hyperlipidemia and he has been treated for CHF. CURRENT MEDICATIONS: 1. Warfarin 5 mg once a day. 2. Atorvastatin 40 at bedtime. 3. Aldactone 25 once a day. 4. Lisinopril 5 mg once a day. Past history is otherwise unremarkable. He used to smoke but he does not any longer. He does not drink. PHYSICAL EXAMINATION: Blood pressure is 110/75 with a pulse of 59 and irregularly irregular. Respirations 16. He is afebrile. In general he appeared to be well developed, well nourished, in no acute distress. Skin color was normal. Skin was warm and dry. Lymph nodes are not enlarged. Head, ears, eyes, nose, mouth and throat were normal. Neck veins were not distended. Thyroid is not enlarged. Chest is clear. Cardiac exam demonstrates an irregularly irregular rhythm. There are no murmurs or extra sounds. The abdomen is slightly protuberant and soft without any masses or visceromegaly. Bowel sounds are present. Extremities were normal. Neurologically he was intact. IMPRESSION: Supraventricular tachycardia. RECOMMENDATIONS: None. Proceed with ablation. MMODL / IJN: [id number] /
== END 2019-03-06 15:20 | disposition home or self-care (01) ==
LOC: CATHEP 05:46 → 1SOBS 12:58 → CATHEP 03-06 15:20
PROVIDERS: ATTEND Internal Medicine Clinical Cardiac Electrophysiology
DX: I47.1 Supraventricular tachycardia (principal); I48.91 Unspecified atrial fibrillation; I44.1 Atrioventricular block, second degree; I34.0 Nonrheumatic mitral (valve) insufficiency; I10 Essential (primary) hypertension; E78.5 Hyperlipidemia, unspecified; J44.9 Chronic obstructive pulmonary disease, unspecified; Z87.891 Personal history of nicotine dependence; G47.30 Sleep apnea, unspecified; Z80.42 Family history of malignant neoplasm of prostate; Z81.8 Family history of other mental and behavioral disorders; Z79.82 Long term (current) use of aspirin; Z79.01 Long term (current) use of anticoagulants; Z79.899 Other long term (current) drug therapy
CPT/HCPCS: 92960; 93623; 93613; 93653; 85610 ×2; C1894; C1769 ×2; C1730 ×3; C1731; C1732; J2250; J1200; J2001; J3010; J1644; J2704

== ENCOUNTER → 2020-06-11 | Outpatient (CLI) | payer OTHER ==
[2020-06-11 08:15] LABS: HCT 47.8 % (39.0-53.0); HGB 16.3 gm/dL (13.0-17.5); MCH 31.6 pg (25.0-35.0); MCHC 34.2 g/dL (31.0-37.0); MCV 92.5 fL (80.0-100.0); Mean Platelet Volume 7.1; Platelet Count 251 k/uL (150-450); RBC 5.17 m/uL (4.30-5.90); RDW 14.3 % (11.5-15.5); WBC 8.6 k/uL (3.8-10.6)
[2020-06-11 08:32] LABS: African American GFR (CKD) >90 (>60 ml/min/1.73 sqM); Blood Urea Nitrogen 12 mg/dL (9-20); Non-African American GFR(CKD) >90 (>60 ml/min/1.73 sqM); Potassium 4.4 mmol/L (3.5-5.1)
== END | disposition home or self-care (01) ==
LOC: LABPAT 07:43
PROVIDERS: ATTEND Internal Medicine Clinical Cardiac Electrophysiology
DX: Z01.818 Encounter for other preprocedural examination (principal)
CPT/HCPCS: 36415; 82565; 83735; 84132; 84520; 85027

== ENCOUNTER → 2020-06-23 | Day surgery (SDC) | payer OTHER ==
[2020-06-16 15:53] VITALS: BMI 30.2
[~2020-06-23] MED LIST: SODIUM CHLORIDE 0.9% 1,000 ML IV SCH
[2020-06-23 10:42] VITALS: BP 123/75; PULSE 55; RESP 16; TEMP 98.9
== END ==
LOC: CATHEP 10:13
PROVIDERS: ATTEND Internal Medicine Clinical Cardiac Electrophysiology
DX: I47.1 Supraventricular tachycardia (principal); I48.19 Other persistent atrial fibrillation; Z53.8 Procedure and treatment not carried out for other reasons; I10 Essential (primary) hypertension; E78.5 Hyperlipidemia, unspecified; Z72.0 Tobacco use; G47.33 Obstructive sleep apnea (adult) (pediatric); Z79.01 Long term (current) use of anticoagulants; Z79.899 Other long term (current) drug therapy
CPT/HCPCS: 93005

== ENCOUNTER 2020-09-14 16:21 | Observation (INO) | payer OTHER ==
[2020-09-14] MEDS ORDERED: DILTIAZEM DRIP BOLUS FROM BAG 1 MG SOLN IV ONE (16:44)
[2020-09-14] MEDS ORDERED: DILTIAZEM 125 MG in SODIUM CHLORIDE 0.9% 100 ML IV SCH (16:45)
[2020-09-14 17:06] LABS: Basophils % (A) 0 %; Eosinophils # (A) 0.1 k/uL (0-0.7); Eosinophils % (A) 1 %; HCT 50.7 % (39.0-53.0); HGB 17.5 gm/dL (13.0-17.5); Lymphocytes # (A) 2.4 k/uL (1.0-4.8); Lymphocytes % (A) 19 %; MCHC 34.5 g/dL (31.0-37.0); MCV 89.7 fL (80.0-100.0); Mean Platelet Volume 7.8; Monocytes # (A) 0.6 k/uL (0-1.0); Monocytes % (A) 4 %; Neutrophils # (A) 9.4 k/uL (1.3-7.7); Neutrophils % (A) 74 %; Platelet Count 226 k/uL (150-450); RBC 5.65 m/uL (4.30-5.90); RDW 13.8 % (11.5-15.5); WBC 12.7 k/uL (3.8-10.6)
[2020-09-14 17:11] LABS: INR 2.2 (<1.2); Partial Thromboplastin Time 30.1 sec (22.0-30.0); Prothrombin Time 21.4 sec (9.0-12.0)
--- NOTE | 2020-09-14 17:15 | XR ---
EXAMINATION TYPE: XR chest 2V DATE OF EXAM: 09/14/2020 COMPARISON: NONE HISTORY: Chest pain. TECHNIQUE: Frontal and lateral views of the chest are obtained. FINDINGS: There is no focal air space opacity, pleural effusion, or pneumothorax seen. The cardiac silhouette size is within normal limits. The osseous structures are intact. IMPRESSION: No acute cardiopulmonary process.
--- NOTE | 2020-09-14 17:24 | ED ---
Chest Pain HPI - General Chief Complaint: Chest Pain Stated Complaint: A FIB WITH CHEST PAINS Time Seen by Provider: 09/14/20 16:36 Source: patient, RN notes reviewed Mode of arrival: wheelchair Limitations: no limitations - History of Present Illness Initial Comments: 64-year-old male presents emergency Department with chief complaint of chest pain. Patient states on his left side of his chest started swelling. Patient has a long history of A. fib with multiple ablations by Dr. ruiz, patient states that he noticed symptoms morning which have not resolved. All left-sided chest pain no shortness of breath states he just feels his heart racing. Patient is currently on Coumadin. Patient denies any other complaints of leg pain, leg swelling abdominal issues. - Related Data Home Medications Medication Instructions Recorded Confirmed Spironolactone [Aldactone] 25 mg PO DAILY 10/07/15 09/14/20 Atorvastatin [Lipitor] 40 mg PO DAILY 03/01/19 09/14/20 Nitroglycerin Sl Tabs [Nitrostat] 0.4 mg SUBLINGUAL Q5M PRN 06/16/20 09/14/20 Warfarin [Coumadin] 5 mg PO HS 09/14/20 09/14/20 Allergies Allergy/AdvReac Type Severity Reaction Status Date / Time No Known Allergies Allergy Verified 09/14/20 17:33 Review of Systems ROS Statement: Those systems with pertinent positive or pertinent negative responses have been documented in the HPI. ROS Other: All systems not noted in ROS Statement are negative. EKG Findings - EKG Comments: EKG Findings:: EKG performed at 16:35 A. fib with RVR rate of 111 OH 98 QT/QTC 324/440 Past Medical History Past Medical History: Hyperlipidemia, Sleep Apnea/CPAP/BIPAP Additional Past Medical History / Comment(s): See Dr Radford's H&P, no CPAP used, History of Any Multi-Drug Resistant Organisms: None Reported Past Surgical History: Cardiac Ablation, Orthopedic Surgery Additional Past Surgical History / Comment(s): cardiac ablation x 6, left knee arthroscopy, abdominal surgery to removed colon polyp, JJ's Past Anesthesia/Blood Transfusion Reactions: No Reported Reaction Past Psychological History: No Psychological Hx Reported Past Alcohol Use History: None Reported Past Drug Use History: None Reported - Past Family History Father Family Medical History: Cancer Additional Family Medical History / Comment(s): Father of prostate cancer. Mother Family Medical History: Dementia Brother(s) Family Medical History: Cancer Additional Family Medical History / Comment(s): Throat cancer. General Exam Limitations: no limitations General appearance: alert, in no apparent distress Head exam: Present: atraumatic, normocephalic, normal inspection Eye exam: Present: normal appearance, PERRL, EOMI. Absent: scleral icterus, conjunctival injection, periorbital swelling ENT exam: Present: normal exam, normal oropharynx, mucous membranes moist Neck exam: Present: normal inspection, full ROM. Absent: tenderness, meningismus, lymphadenopathy Respiratory exam: Present: normal lung sounds bilaterally. Absent: respiratory distress, wheezes, rales, rhonchi, stridor Cardiovascular Exam: Present: tachycardia, irregular rhythm, normal heart sounds. Absent: regular rate, normal rhythm, systolic murmur, diastolic murmur, rubs, gallop, clicks GI/Abdominal exam: Present: soft, normal bowel sounds. Absent: distended, tenderness, guarding, rebound, rigid Extremities exam: Present: normal capillary refill. Absent: pedal edema, calf tenderness Neurological exam: Present: alert, oriented X3 Course Vital Signs 09/14/20 09/14/20 09/14/20 16:29 17:08 17:12 Temperature 99.1 F Pulse Rate 69 140 H 115 H Respiratory 18 18 18 Rate Blood Pressure 120/77 124/99 O2 Sat by Pulse 97 94 L Oximetry Chest Pain MDM - MDM 63-year-old presented for chest pain or palpitations. Patient continues to have chest pain initial set of cardiac enzymes are negative. Patient did have A. fib RVR with a history of A. fib patient started Cardizem symptoms are improving. Critical Care Time Critical Care Time: Yes Total Critical Care Time: 35 Critical Care Time: Total 35 minutes of critical care time used initially evaluate the patient, review past medical history according labs EKG and chest x-ray. Patient found to be in A. fib RVR started on Cardizem with a bolus. Patient will be admitted with cardiology evaluation. Disposition Clinical Impression: Chest pain, Atrial fibrillation with RVR Disposition: ADMITTED IP TO THIS [facility] Condition: Fair Referrals: Randell Christian MD [Primary Care Provider] - 1-2 days
[2020-09-14 17:35] LABS: ALT 18 U/L (4-49); AST 24 U/L (17-59); African American GFR (CKD) >90 (>60 ml/min/1.73 sqM); Albumin 4.5 g/dL (3.5-5.0); Alkaline Phosphatase 94 U/L (38-126); Anion Gap 9 mmol/L; Blood Urea Nitrogen 10 mg/dL (9-20); Calcium 9.9 mg/dL (8.4-10.2); Carbon Dioxide 24 mmol/L (22-30); Chloride 105 mmol/L (98-107); Glucose 164 mg/dL (74-99); Non-African American GFR(CKD) >90 (>60 ml/min/1.73 sqM); Potassium 3.4 mmol/L (3.5-5.1); Sodium 138 mmol/L (137-145); Total Bilirubin 0.5 mg/dL (0.2-1.3); Total Protein 7.6 g/dL (6.3-8.2)
[2020-09-14] MEDS ORDERED: NITROGLYCERIN OINT 1 INCH/GM PACKET TOPICAL STA (17:54)
[2020-09-14] MEDS ORDERED: NITROGLYCERIN SL TABS 0.4 MG TAB SUBLINGUAL PRN ×2 (17:54→21:00)
[2020-09-14] MEDS ORDERED: WARFARIN 5 MG TAB PO SCH (21:00)
[2020-09-15 08:13] LABS: INR 2.1 (<1.2); Prothrombin Time 20.8 sec (9.0-12.0)
[2020-09-15 08:14] LABS: Cholesterol 137 mg/dL (<200); HDL Cholesterol 37 mg/dL (40-60); LDL Cholesterol,Calculated 75 mg/dL (0-99); Triglycerides 125 mg/dL (<150)
[2020-09-15] MEDS ORDERED: ASPIRIN 325 MG TAB PO SCH (09:00)
[2020-09-15] MEDS: SPIRONOLACTONE 25 MG TAB PO SCH (09:38)
[2020-09-15] MEDS: SODIUM CHLORIDE 0.9% 1,000 ML IV SCH (09:38)
[2020-09-15] MEDS: ATORVASTATIN 40 MG TAB PO SCH (09:38)
--- NOTE | 2020-09-15 10:00 | CONS ---
MARLEEN Pino is a 64-year-old gentleman with history of atrial fibrillation, status post multiple prior ablations, who presented to hospital with sustained palpitations and sharp atypical chest pain. He was found to be in atrial fibrillation with somewhat poorly controlled ventricular rate and Cardiology had been consulted for the same. He does not have chest pain, difficulty in breathing, syncope, leg edema, PND or orthopnea. At the time of my evaluation this morning, he appears comfortable at rest. Afebrile. Heart rate is 85 beats per minute. Blood pressure is 112/69, respiratory rate is 17, O2 saturation is 94% on room air. His labs show that he is on Coumadin and INR is therapeutic at 2.1. The patient was on IV Cardizem on his initial presentation, however, he developed slow ventricular rates and pauses of 3 seconds due to which the Cardizem had been stopped. PAST MEDICAL HISTORY: Significant for paroxysmal atrial fibrillation, status post prior ablations. MEDICATIONS: Medications at home include Coumadin 5 mg daily, Lipitor 40 daily, spironolactone 25 daily. ALLERGIES: There are no known drug allergies. FAMILY HISTORY: Negative for premature coronary artery disease. SOCIAL HISTORY: Negative for current smoking, EtOH abuse, or drug abuse. REVIEW OF SYSTEMS: HEENT is unremarkable. CARDIAC: As described above. RESPIRATORY: As described above. GI: Negative. GENITOURINARY: Negative. ALLERGY/IMMUNOLOGY: Negative. SKIN: Negative. MUSCULOSKELETAL: Negative, ENDOCRINE: Negative. DERMATOLOGY: Negative. CONSTITUTIONAL: Negative. ONCOLOGICAL: Negative. RESEARCH PROGRAM ASSISTANT: Negative. The rest of the system review is not relevant. PHYSICAL EXAMINATION: Heart rate is 85 beats per minute, blood pressure is 112/69, respiratory rate is 17, O2 saturation is 94%. There is no jugular venous distention. Carotid upstroke is normal. There is no bruit. Chest exam reveals good air entry bilaterally. Heart exam reveals first and second heart sounds, irregular rhythm and a systolic murmur at the left lower sternal border. Abdomen is soft. Examination of extremities did not reveal any edema. Peripheral pulses are felt. LABS: Labs show a hemoglobin of 17.5, platelet count is 226. INR is 2.1. Potassium is 3.4. Three sets of troponins are negative. Coronavirus is negative. Lipid profile shows a total cholesterol of 137 and LDL is 75. ASSESSMENT: Persistent atrial fibrillation. PLAN: I will obtain a 2D echo to evaluate his LV function. The patient is adequately anticoagulated. Does not need rate control measures since his heart rate is well controlled. We will talk to his primary equalizing saw operator to see if we can do a JJ cardioversion on him. The patient had an echo done in 2019 that revealed LV systolic dysfunction with an ejection fraction of 45% with mild to moderate mitral regurgitation. REBECCA / JUSTINON: [id number] /
[2020-09-15] MEDS ORDERED: HEPARIN SODIUM,PORCINE 10,000 UNIT/ML 1 ML VIAL ONE (12:32)
[2020-09-15] MEDS ORDERED: MIDAZOLAM 2 MG/2 ML VIAL ONE (12:32)
[2020-09-15] MEDS ORDERED: PROPOFOL 10 MG/ML 20 ML VIAL IV ONE (12:32)
[2020-09-15] MEDS ORDERED: IV FLUID CONTINUATION 1,000 ML IV ONE ×2 (12:40)
--- NOTE | 2020-09-15 13:05 | P.EPPROC ---
- EP Procedure Note Electrophysiology Procedure Note: Diagnosis Symptomatic A. smith with RVR Associated with chest discomfort Procedure Successful Electrical cardioversion for atrial fibrillation Details 360 J biphasic shock in the AP configuration converted to sinus in the 70s Plan Proceed with A. fib ablation Previously he has undergone PVI, antral level ablation of the left atrial roof Ablation of the bridge and the mitral isthmus area in the past Atrial tachycardia ablation along the anterior wall of the LAD Atrial tachycardia ablation posterior RA just below the SVC, broad area of activation Usually he would have some breakthrough episodes of atrial tachycardia at this time he came in with A. smith We evaluated him for a vena Shivam ablation but he has multiple atrial branches with collaterals, somewhat unsuitable for alcohol injection Plan At this ablation, if he is in sinus rhythm we will perform a scar wrap and evalu ated the roof, the mitral isthmus as well as the right atrium We may have to reemploy amiodarone
[2020-09-15] MEDS ORDERED: WARFARIN 3 MG TAB PO SCH (18:00)
--- NOTE | 2020-09-15 18:41 | HP ---
HISTORY AND PHYSICAL CHIEF COMPLAINT: Rapid heart beating, chest pain and shortness of breath. HISTORY OF PRESENT ILLNESS: This is another admission for this 64-year-old white male who has a longstanding history of chronic and persistent atrial fibrillation. He noticed that his heart was beating suddenly faster and he had some chest discomfort and shortness of breath. He was not diaphoretic. Chest pain did not radiate. He came to the emergency room, where he was found to be in atrial fibrillation with a rapid ventricular response, and he was admitted. There is nothing that triggered this that he is aware of. REVIEW OF SYSTEMS: He has had no change in vision or hearing, neurologic deficits, cough, hemoptysis, orthopnea, PND, abdominal pain, nausea, vomiting, hematemesis, melena, hematochezia, jaundice, hepatitis, renal failure, hematuria, incontinence, nocturia, dysuria, etc. He has had no significant orthopedic issues. He is not diabetic. Past medical history, family history, and personal and social histories reveal he is NOT ALLERGIC TO ANY MEDICATION. He is on Coumadin, Vicodin p.r.n., atorvastatin 40, vitamin D3, Aldactone 25 once a day and lisinopril 5 once a day. He smoked but does not any longer. He has been taking good care of himself and he is compliant. PHYSICAL EXAMINATION: Blood pressure is 132/70 with a pulse of 145, respirations of 34, and he is afebrile. In general he appeared to be well developed, well nourished, in no acute distress. Skin color is normal. Skin is warm and dry. Face was flushed. Head, ears, eyes, nose, mouth and throat were otherwise normal. Neck veins were not distended. Chest was clear. Cardiac exam demonstrated atrial fibrillation with an irregularly irregular pulse and tachycardia. The abdomen was soft and nontender without any visceromegaly or masses. Bowel sounds were present. Extremities were normal. Neurologically he is intact. He is admitted to the hospital with the diagnosis: Atrial fibrillation with rapid ventricular response. PLAN: 1. Bedrest. 2. IV fluids. 3. Cardiology consult. MMODL / IJN: [id number] /
--- NOTE | 2020-09-15 19:01 | PN ---
PROGRESS NOTE DATE OF SERVICE: 09/15/2020 CHIEF COMPLAINT: Atrial fibrillation with rapid ventricular response. HISTORY OF PRESENT ILLNESS: This gentleman is doing well. He is comfortable. He is going down for cardioversion today. PHYSICAL EXAMINATION: Chest is clear. Cardiac exam is unchanged with atrial fibrillation. PLAN: Cardioversion today. MMODL / IJN: [id number] /
[2020-09-15 23:46] VITALS: RESP 16
[2020-09-16] MEDS: ATORVASTATIN 40 MG TAB PO SCH (07:38)
[2020-09-16] MEDS: SPIRONOLACTONE 25 MG TAB PO SCH (07:38)
[2020-09-16 08:10] VITALS: BP 107/71; PULSE 64; TEMP 98.2
[2020-09-16 08:36] LABS: African American GFR (CKD) >90 (>60 ml/min/1.73 sqM); Anion Gap 10 mmol/L; Blood Urea Nitrogen 16 mg/dL (9-20); Calcium 9.5 mg/dL (8.4-10.2); Carbon Dioxide 22 mmol/L (22-30); Chloride 104 mmol/L (98-107); Glucose 129 mg/dL (74-99); HCT 50.9 % (39.0-53.0); HGB 16.9 gm/dL (13.0-17.5); MCH 30.6 pg (25.0-35.0); MCHC 33.2 g/dL (31.0-37.0); MCV 92.3 fL (80.0-100.0); Mean Platelet Volume 8.6; Non-African American GFR(CKD) >90 (>60 ml/min/1.73 sqM); Platelet Count 167 k/uL (150-450); Potassium 4.6 mmol/L (3.5-5.1); RBC 5.51 m/uL (4.30-5.90); RDW 14.5 % (11.5-15.5); Sodium 136 mmol/L (137-145); WBC 11.7 k/uL (3.8-10.6)
[2020-09-16 08:38] LABS: INR 2.2 (<1.2); Prothrombin Time 21.1 sec (9.0-12.0)
[2020-09-16] MEDS: SODIUM CHLORIDE 0.9% 1,000 ML IV SCH (08:39)
--- NOTE | 2020-09-16 10:26 | ECHOF ---
Referral Reason:lv fxn MEASUREMENTS -------- HEIGHT: 175.3 cm WEIGHT: 67.6 kg BP: RVIDd: 3.7 cm (< 3.3) IVSd: 1.3 cm (0.6 - 1.1) LVIDd: 4.6 cm (3.9 - 5.3) LVPWd: 1.4 cm (0.6 - 1.1) IVSs: 1.6 cm LVIDs: 3.8 cm LVPWs: 1.7 cm LA Diam: 4.0 cm (2.7 - 3.8) LAESV Index (A-L): 30.80 ml/m Ao Diam: 3.1 cm (2.0 - 3.7) AV Cusp: 2.3 cm (1.5 - 2.6) LA Diam: 4.5 cm (2.7 - 3.8) MV EXCURSION: 21.432 mm (> 18.000) MV EF SLOPE: 80 mm/s (70 - 150) EPSS: 0.9 cm RAP: 5.00 mmHg RVSP: 13.79 mmHg FINDINGS -------- Atrial fibrillation. This was a technically good study. The left ventricular size is normal. There is mild concentric left ventricular hypertrophy. Overa ll left ventricular systolic function is normal with, an EF between 55 - 60 %. The right ventricle is normal in size. LA is midly dilated 29-33ml/m2. The right atrial size is normal. There is mild aortic valve sclerosis. There is mild aortic regurgitation. There is trace mitral regurgitation. Mild tricuspid regurgitation present. Right ventricular systolic pressure is normal at < 35 mmHg. Trace/mild (physiologic) pulmonic regurgitation. The aortic root size is normal. There is no pericardial effusion. CONCLUSIONS -------- 1. The left ventricular size is normal. 2. There is mild concentric left ventricular hypertrophy. 3. Overall left ventricular systolic function is normal with, an EF between 55 - 60 %. 4. The right ventricle is normal in size. 5. LA is midly dilated 29-33ml/m2. 6. The right atrial size is normal. 7. There is mild aortic valve sclerosis. 8. There is mild aortic regurgitation. 9. There is trace mitral regurgitation. 10. Mild tricuspid regurgitation present. 11. Trace/mild (physiologic) pulmonic regurgitation. 12. The aortic root size is normal. 13. There is no pericardial effusion. SENIOR GROUP MANAGER: Sonja Bazan RDCS
--- NOTE | 2020-09-16 11:59 | P.PN ---
Subjective Progress Note Date: 09/16/20 HISTORY OF PRESENT ILLNESS: Patient is status post cardioversion yesterday with Dr. Anna. Patient is maintaining sinus mechanism this morning. He denies chest pain or pressure. Den ies shortness of breath. He remains on Coumadin. Dosage was adjusted yesterday. INR 2.2 today. PHYSICAL EXAM: VITAL SIGNS: Reviewed. GENERAL: Well-developed in no acute distress. NECK: Supple. No JVD or thyromegaly LUNGS: Respirations even and unlabored. Lungs essentially clear to auscultation bilaterally. HEART: Regular rate and rhythm. S1 and S2 heard. EXTREMITIES: Normal range of motion. No clubbing or cyanosis. Peripheral pulses intact. No lower extremity edema ASSESSMENT: Paroxysmal atrial fibrillation with RVR, status post cardioversion Hyperlipidemia Former nicotine dependence PLAN: Continue Coumadin. Dosage adjusted yesterday per Dr. Anna Patient may be discharged home today from a cardiac perspective Nurse practitioner note has been reviewed by physician. Signing provider agrees with the documented findings, assessment, and plan of care. Objective - Vital Signs Vital signs: Vital Signs Temp 98.2 F 09/16/20 07:37 Pulse 64 09/16/20 07:37 Resp 16 09/16/20 07:37 BP 107/71 09/16/20 07:37 Pulse Ox 96 09/16/20 07:37 Intake & Output 09/15/20 09/16/20 09/16/20 18:59 06:59 18:59 Intake Total 690.167 480 310 Output Total 600 Balance 90.167 480 310 Weight 89.2 kg Intake: IV 320 10 Invasive Line 1 20 10 Intake, IV Titration 70.167 Amount Diltiazem 125 mg In 70.167 Sodium Chloride 0.9% 100 ml @ 5 MG/HR 5 mls/hr IV .Q24H ROCIO Rx#:[id number] Oral 300 480 300 Output: Urine 600 Other: Voiding Method Toilet # Voids 2 1 - Labs CBC & Chem 7: 09/16/20 07:30 09/16/20 07:30 Labs: Abnormal Lab Results - Last 24 Hours (Table) 09/16/20 09/16/20 09/16/20 Range/Units 07:30 07:30 07:30 WBC 11.7 H (3.8-10.6) k/uL PT 21.1 H (9.0-12.0) sec INR 2.2 H (<1.2) Sodium 136 L (137-145) mmol/L Glucose 129 H (74-99) mg/dL
[2020-09-16] MEDS ORDERED: WARFARIN 5 MG TAB PO SCH (18:00)
--- NOTE | 2020-09-17 06:32 | DS ---
DISCHARGE SUMMARY DATE OF SERVICE: 09/16/2020 CHIEF COMPLAINT: Atrial fibrillation with rapid ventricular response. HISTORY OF PRESENT ILLNESS AND PHYSICAL EXAMINATION: Details of this man's history and physical can be found in the initial workup. LABORATORY STUDIES: While he was in the hospital he had laboratory studies, details of which can be found in the laboratory section of chart. COURSE IN THE HOSPITAL: After admission he was placed on bedrest and started on intravenous fluids and seen by Cardiology. The heart rate was brought down and he was taken for cardioversion. After that, he remained stable and it was felt he could be discharged on the . He will go home on his usual activity and diet and follow up with Cardiology. We will contact him also for followup. FINAL DIAGNOSIS: Chronic atrial fibrillation with rapid ventricular response. OPERATIONS: None. CONSULTATIONS: Cardiology. He is improved. MMCONRADO / TYESHA: [id number] /
== END 2020-09-16 11:14 | disposition home or self-care (01) ==
LOC: EC 16:21 → 3SCARD 17:52
PROVIDERS: ADMIT Family Medicine; ATTEND Family Medicine
DX: I48.19 Other persistent atrial fibrillation (principal); I34.0 Nonrheumatic mitral (valve) insufficiency; E78.5 Hyperlipidemia, unspecified; G47.30 Sleep apnea, unspecified; Z79.01 Long term (current) use of anticoagulants; Z79.899 Other long term (current) drug therapy; Z20.822 Contact with and (suspected) exposure to COVID-19; Z86.010 Personal history of colon polyps; Z98.890 Other specified postprocedural states; Z87.891 Personal history of nicotine dependence; Z80.42 Family history of malignant neoplasm of prostate; Z80.8 Family history of malignant neoplasm of other organs or systems; Z81.8 Family history of other mental and behavioral disorders
CPT/HCPCS: 96366 ×3; 93005 ×2; 96376; 96365; 99291; 36415; 93306; 92960; 83880; 80061; 80053; 80048; 83735; 84484; 85025; 85027; 85610 ×3; 85730; 87635; 71046; G0378 ×3; J2250; J1644; J2704

== ENCOUNTER → 2020-10-20 | Outpatient (CLI) | payer OTHER ==
[2020-10-20 11:00] LABS: African American GFR (CKD) >90 (>60 ml/min/1.73 sqM); Anion Gap 5 mmol/L; Blood Urea Nitrogen 12 mg/dL (9-20); Carbon Dioxide 30 mmol/L (22-30); Chloride 104 mmol/L (98-107); Non-African American GFR(CKD) >90 (>60 ml/min/1.73 sqM); Potassium 4.6 mmol/L (3.5-5.1); Sodium 139 mmol/L (137-145)
[2020-10-20 11:25] LABS: HCT 47.3 % (39.0-53.0); HGB 15.8 gm/dL (13.0-17.5); MCH 30.6 pg (25.0-35.0); MCHC 33.4 g/dL (31.0-37.0); MCV 91.7 fL (80.0-100.0); Mean Platelet Volume 7.4; Platelet Count 210 k/uL (150-450); RBC 5.16 m/uL (4.30-5.90); RDW 14.6 % (11.5-15.5)
== END | disposition home or self-care (01) ==
LOC: LABPAT 08:54
PROVIDERS: ATTEND Internal Medicine Clinical Cardiac Electrophysiology
DX: Z01.812 Encounter for preprocedural laboratory examination (principal); I48.11 Longstanding persistent atrial fibrillation
CPT/HCPCS: 36415; 80051; 82565; 84520; 85027

== ENCOUNTER 2020-11-04 10:10 | Day surgery (SDC) | payer OTHER ==
[2020-10-30 14:18] VITALS: BMI 30.1
[~2020-11-04 10:10] MED LIST changes: +LACTATED RINGERS 1,000 ML IV SCH; +ONDANSETRON 4 MG/2 ML VIAL IVP PRN
[2020-11-04 11:22] LABS: INR 3.6 (<1.2); Prothrombin Time 34.6 sec (9.0-12.0)
[2020-11-04] MEDS ORDERED: PROTAMINE SULFATE 10 MG/ML 5 ML VIAL IV ONE (13:00)
[2020-11-04] MEDS ORDERED: PROPOFOL 10 MG/ML 20 ML VIAL IV ONE (13:00)
[2020-11-04] MEDS ORDERED: fentaNYL (PF) 50 MCG/ML 2 ML AMP ONE (13:00)
[2020-11-04] MEDS ORDERED: ONDANSETRON 4 MG/2 ML VIAL ONE (13:00)
[2020-11-04] MEDS ORDERED: NEOSTIGMINE 1 MG/ML 10 ML VIAL ONE (13:00)
[2020-11-04] MEDS ORDERED: ROCURONIUM 10 MG/ML (5 ML VIAL) IV ONE (13:00)
[2020-11-04] MEDS ORDERED: GLYCOPYRROLATE 0.2 MG/ML 2 ML VIAL ONE (13:00)
[2020-11-04] MEDS ORDERED: MIDAZOLAM 2 MG/2 ML VIAL ONE (13:00)
[2020-11-04] MEDS ORDERED: ISOPROTERENOL 250 MCG/1.25 ML SYR IV ONE (13:00)
[2020-11-04] MEDS ORDERED: LIDOCAINE 1% INJ 10MG/ML (20 ML MDV) ONE ×2 (13:00→13:55)
[2020-11-04] MEDS ORDERED: FUROSEMIDE 10 MG/ML 2 ML VIAL ONE (13:00)
[2020-11-04] MEDS ORDERED: HEPARIN SODIUM,PORCINE 10,000 UNIT/ML 1 ML VIAL ONE (13:00)
[2020-11-04] MEDS ORDERED: LIDOCAINE 1% INJ 10MG/ML (20 ML MDV) SQ ONE ×2 (13:55)
[2020-11-04] MEDS ORDERED: HEPARIN SODIUM (1,000 UNIT/ML) 1,000 UNIT in SODIUM CHLORIDE 0.9% 1,000 ML IRRIGATION ONE ×4 (13:58)
[2020-11-04] MEDS ORDERED: HEPARIN SOD,PORK IN 0.45% NACL 25,000 UNIT in 0.45% NACL 1 250ML.BAG IV ONE ×2 (13:59)
[2020-11-04] MEDS ORDERED: SODIUM CHLORIDE 0.9% 500 ML 500 ML IV ONE (16:54)
[2020-11-04] MEDS ORDERED: HYDROcodone/APAP 5-325MG 1 EACH TAB PO PRN (16:56)
[2020-11-04] MEDS ORDERED: ACETAMINOPHEN TAB 325 MG TAB PO PRN (16:56)
[2020-11-04] MEDS ORDERED: WARFARIN 5 MG TAB PO SCH (17:00)
--- NOTE | 2020-11-04 17:07 | P.EPPROC ---
- EP Procedure Note Electrophysiology Procedure Note: Result Gap in the mitral isthmus RF line noted with electro-anatomic mapping Successful 3-D and entrainment mapping confirmed mitral reentry, counterclockwise Successful RF ablation result in termination of the tachycardia Pulmonary veins were completely isolated from prior ablation Roofline was intact, from prior ablation Plan Continue anticoagulation
--- NOTE | 2020-11-04 17:10 | P.PRLE ---
RE: Alvarez Rangel Dear Dr. Anahi Pino underwent a diagnostic EP study and 3-D electro-anatomic mapping of both the atria and the coronary sinus. Result Gap in the mitral isthmus RF line noted with electro-anatomic mapping Successful 3-D and entrainment mapping confirmed mitral reentry, counterclockwise Successful RF ablation resulted in termination of the tachycardia Pulmonary veins were completely isolated from prior ablation Roofline was intact, from prior ablation Plan Continue anticoagulation Thank you for entrusting me with the care of the patient Warm regards Sincerely Bradley Anna
[2020-11-04] MEDS ORDERED: ACETAMINOPHEN IV (For NPO) 1,000 MG in EMPTY BAG 1 BAG IVPB ONE (17:30)
--- NOTE | 2020-11-04 17:44 | CE ---
CARDIAC ELECTROPHYSIOLOGY REPORT This is a 65-year-old male patient with a history of atrial fibrillation who presents with atrial tachycardia with a rapid ventricular response, symptomatic, sustained and persistent. He has had an atrial fibrillation ablation with pulmonary vein isolation, linear ablation of the left atrial roof, linear ablation along the ridge between the appendage and the pulmonary vein and mitral isthmus line. He has had an atrial flutter ablation previously. He did well for many years, but then he had a recurrence once again. Patient was brought to the EP lab in a fasting state. Written informed consent was obtained prior to the procedure. The left shoulder area was prepped and draped as per protocol. Lidocaine 1% was used for local anesthesia. A long coronary sinus sheath was used from the subclavian vein and a coronary sinus catheter was placed within the coronary sinus. The patient was in atrial tachycardia with a cycle length of about 254 milliseconds, concentric activation. Venous sheaths were placed in the right and left femoral veins and a PentaRay catheter, a mapping and ablation catheter and intracardiac echo catheter were placed. There was no evidence for a left atrial appendage thrombus. No pericardial effusion at the start of the study. Activation mapping of the right atrium was performed, and there was no evidence for a right atrial focus. An ablation catheter was then placed in the coronary sinus and the coronary sinus was mapped distally to proximally, and once again, the earliest activation was not noted in the coronary sinus, either. Following this, intracardiac echocardiography revealed fossa ovalis that was somewhat thick secondary to prior transseptal catheterizations; however, this was successfully punctured and a catheter was negotiated into the left atrium along with a sheath. Mapping was then performed of the left atrium. A PentaRay catheter was used and activation mapping was performed. Activation mapping revealed earliest activation around the left atrial appendage. However, on closer evaluation there actually appeared to be a perimitral reentry with an early activation meeting in latest part of the activation in the region of the left atrial appendage. The voltage map showed that there was a gap in the previous mitral anulus line, and entrainment mapping here showed that the post-pacing interval minus the tachycardia cycle length was about 30 milliseconds with repeat measurements. All pulmonary veins were completely isolated. The roof line was intact. The anterior mitral line was also fairly intact. An RF ablation catheter was used to ablate the area of the mitral isthmus with a gap in the line. The second RF ablation resulted in termination of the tachycardia. Following that, a complete RF line of block was made all along the line from the anterior lip of the left inferior pulmonary vein to the mitral anulus. A complete line of block was made. Following that, bidirectional block was proven with differential pacing. Following that, burst stimulation was performed in the coronary sinus, posterior LA, anterior LA. Extrastimulation was performed after double and triple extrastimuli. High-dose Isuprel was employed. Extrastimulation and burst stimulation were performed once again without induction of any atrial fibrillation. At the end of the procedure, the catheters were removed and patient was transferred back to telemetry. This was a long procedure since it involved activation mapping and voltage mapping of the right atrium, left atrium and the coronary sinus. The fossa ovalis was thickened and it required multiple attempts to cross it successfully. The patient tolerated the procedure well without any acute complications. MMODL / IJN: [id number] /
[2020-11-04] MEDS ORDERED: WARFARIN 0.5 MG TAB PO ONE (18:00)
[2020-11-05 02:30] VITALS: RESP 16; TEMP 98.2
[2020-11-05 06:53] LABS: INR 3.3 (<1.2); Prothrombin Time 31.8 sec (9.0-12.0)
--- NOTE | 2020-11-05 08:18 | DS ---
DISCHARGE SUMMARY Alvarez Rangel is a 65-year-old male patient who has a history of atrial fibrillation consistent with an atrial tachycardia and underwent an EP study which revealed he had recurrence of mitral reentry. There was a gap in the previous line and 2 RF ablations resulted in termination of the tachycardia. Thereafter, a complete ablation was performed along the mitral isthmus and we were able to demonstrate bidirectional block across the line with differential pacing. He is doing well today. His blood pressure is normal 106/70 mmHg, pulse rate in the 70s. Head and neck examination is normal. No orthopnea. Heart sounds S1, S2 are normal. Lungs are clear. Abdomen is soft. Groins have healed well. His Silva catheter is out and he has voided on his own. The sutures in the groin have been removed. There is no bleeding. IMPRESSION: 1. Atrial fibrillation, status post PVI and linear ablation in the roof, both of which are durable. There was complete isolation of the pulmonary veins and the roof line was intact. 2. Mitral reentry versus clinical tachycardia. He was in tachycardia at the start of the study. Successful RF ablation was performed for termination of the tachycardia and demonstration of bidirectional block with differential pacing. 3. He is on Coumadin. His INR is about 3.3 and we will continue the same dose for now 5 mg every day and 6 mg 2 days of the week. He has no bleeding issues. 4. Prolonged DE interval of about 290 milliseconds. He is not on any AV luiz blocking drugs. PLAN: Discharge home today without any changes in medications. I will see him in about 2 weeks. I will check his INR at the next visit in 2 weeks. MMODL / IJN: [id number] /
[2020-11-05 08:23] VITALS: BP 145/68; PULSE 70
[2020-11-05] MEDS ORDERED: ATORVASTATIN 40 MG TAB PO SCH (09:00)
[2020-11-05] MEDS ORDERED: SPIRONOLACTONE 25 MG TAB PO SCH (09:00)
[2020-11-05] MEDS ORDERED: WARFARIN 1 MG TAB PO SCH (16:56)
[2020-11-05] MEDS ORDERED: WARFARIN 0.5 MG TAB PO ONE (18:00)
--- NOTE | 2020-11-05 19:03 | PN ---
PROGRESS NOTE DATE OF SERVICE: 11/05/2020 CHIEF COMPLAINT: Atrial fibrillation. HISTORY OF PRESENT ILLNESS: This gentleman is doing fine. He apparently had percutaneous entries in both groins. He is having no trouble with the lower extremities in terms of pain, weakness, numbness, etc. He is in sinus rhythm. He is having no chest pain or shortness of breath. PHYSICAL EXAMINATION: Chest is clear. Cardiac exam is normal sinus rhythm. Abdomen is soft, nontender. Extremities are normal with good pulses. IMPRESSION: Status post cardiac ablation. PLAN: Home today. MMODL / IJN: [id number] /
--- NOTE | 2020-11-05 22:10 | CONS ---
CONSULTATION DATE OF SERVICE: 11/04/2020 CHIEF COMPLAINT: Chronic atrial fibrillation. HISTORY OF PRESENT ILLNESS: This gentleman was brought in for ablation. He has been in atrial fibrillation for several years, cardioverted numerous times, and still goes back into atrial fibrillation. REVIEW OF SYSTEMS: He has had no CVAs, TIAs, change in vision or hearing, chest pain, shortness of breath, palpitations, orthopnea, PND, abdominal pain, nausea, vomiting, melena, hematochezia, jaundice, hepatitis, cirrhosis, renal failure, diabetes, etc. Past medical history, family history, and personal and social histories are all otherwise unremarkable and noncontributory. He is NOT ALLERGIC TO ANY MEDICATION. He is on Coumadin, Vicodin p.r.n., atorvastatin, vitamin D and Aldactone. He used to smoke but has stopped. He does not abuse alcohol. PHYSICAL EXAMINATION: Blood pressure 120/82 with a pulse of 86 and irregularly irregular. Respirations were 17 and he is afebrile. In general he appeared to be well developed, well nourished, in no acute distress. Skin color is normal. Skin is warm and dry. Lymph nodes are not enlarged. Head, ears, eyes, nose, mouth and throat were normal. Neck veins are not distended. Thyroid is not enlarged. Chest is clear. Cardiac exam demonstrates his atrial fibrillation. Abdomen is soft, nontender. Extremities are normal. Neurologically he is intact. He is admitted to the hospital with the diagnosis of chronic atrial fibrillation. PLAN: Proceed with ablation. MMODL / IJN: [id number] /
== END 2020-11-05 10:08 | disposition home or self-care (01) ==
LOC: CATHEP 10:10 → 6NMEDSUR 15:55 → CATHEP 11-05 10:08
PROVIDERS: ATTEND Internal Medicine Clinical Cardiac Electrophysiology
DX: I48.19 Other persistent atrial fibrillation (principal); I47.1 Supraventricular tachycardia; I10 Essential (primary) hypertension; I08.1 Rheumatic disorders of both mitral and tricuspid valves; E78.5 Hyperlipidemia, unspecified; G47.33 Obstructive sleep apnea (adult) (pediatric); F17.210 Nicotine dependence, cigarettes, uncomplicated; Z79.01 Long term (current) use of anticoagulants; Z79.899 Other long term (current) drug therapy; Z98.890 Other specified postprocedural states
CPT/HCPCS: 93623; 93662; 93613; 93656; 85610 ×2; 87635; C1759; C1769 ×6; C1894; C1892; C1730; C1731; C1893; C1732; J2250; J2720; J1644 ×3; J1940; J2710; J2405; J2001; J3010; J0131; J2704

== ENCOUNTER → 2021-05-26 | Outpatient (CLI) | payer OTHER ==
[2021-05-26 09:04] LABS: HGB 18.1 gm/dL (13.0-17.5); MCH 31.6 pg (25.0-35.0); MCHC 34.7 g/dL (31.0-37.0); MCV 90.9 fL (80.0-100.0); Mean Platelet Volume 7.7; Platelet Count 239 k/uL (150-450); RBC 5.72 m/uL (4.30-5.90); RDW 14.3 % (11.5-15.5); WBC 8.9 k/uL (3.8-10.6)
[2021-05-26 09:13] LABS: African American GFR (CKD) >90 (>60 ml/min/1.73 sqM); Anion Gap 8 mmol/L; Blood Urea Nitrogen 9 mg/dL (9-20); Carbon Dioxide 29 mmol/L (22-30); Chloride 102 mmol/L (98-107); Non-African American GFR(CKD) 89 (>60 ml/min/1.73 sqM); Sodium 139 mmol/L (137-145)
== END | disposition home or self-care (01) ==
LOC: LABWHC1 08:17
PROVIDERS: ATTEND Internal Medicine Clinical Cardiac Electrophysiology
DX: Z01.812 Encounter for preprocedural laboratory examination (principal); Z20.822 Contact with and (suspected) exposure to COVID-19; I48.92 Unspecified atrial flutter
CPT/HCPCS: 80051; 82565; 84520; 85027; 87635; C9803

== ENCOUNTER 2021-05-28 07:46 | Day surgery (SDC) | payer OTHER ==
[2021-05-26 12:41] VITALS: BMI 32.5
[~2021-05-28 07:46] MED LIST changes: +LIDOCAINE 1% (10MG/ML) FOR IV START INTRADERMA PRN; -ONDANSETRON 4 MG/2 ML VIAL IVP PRN
[2021-05-28 08:35] LABS: INR 3.3 (<1.2); Prothrombin Time 31.8 sec (9.0-12.0)
[2021-05-28 08:42] VITALS: RESP 16; TEMP 98.7
[2021-05-28] MEDS ORDERED: PROPOFOL 10 MG/ML 20 ML VIAL IV ONE (09:38)
[2021-05-28] MEDS ORDERED: LIDOCAINE 1% INJ 10MG/ML (20 ML MDV) ONE (09:38)
--- NOTE | 2021-05-28 10:17 | P.EPPROC ---
- EP Procedure Note Electrophysiology Procedure Note: Diagnosis Persistent symptomatic atrial fibrillation Patient on flecainide 200 mg twice daily Underlying first-degree AV block Procedure details Electrical cardioversion performed successfully in the AP configuration 200 J biphasic shock to sinus rhythm with a prolonged VA interval Plan Reduce flecainide to 100 mg twice daily Continue anticoagulation
--- NOTE | 2021-05-28 10:27 | P.EPPROC ---
- EP Procedure Note Electrophysiology Procedure Note: Twelve-lead EKG prior to cardioversion Atrial fibrillation, controlled ventricular response Currently patient is on flecainide 200 mg twice daily Successful electrical cardioversion was performed Twelve-lead EKG thereafter showed sinus rhythm prolonged NJ interval [address] segments, on flecainide 200 mg twice daily Plan Reduce the dose of flecainide to 100 mg twice a day Continue warfarin Today's INR is 3.3
[2021-05-28 14:19] VITALS: BP 114/77; PULSE 61
== END 2021-05-28 11:35 | disposition home or self-care (01) ==
LOC: CATHEP 07:46
PROVIDERS: ATTEND Internal Medicine Clinical Cardiac Electrophysiology
DX: I48.19 Other persistent atrial fibrillation (principal); I44.0 Atrioventricular block, first degree; E78.5 Hyperlipidemia, unspecified; I10 Essential (primary) hypertension; Z72.0 Tobacco use; Z79.01 Long term (current) use of anticoagulants; Z79.899 Other long term (current) drug therapy
CPT/HCPCS: 92960; 85610; J2001; J2704

== ENCOUNTER 2022-02-25 05:57 | Day surgery (SDC) | payer MEDICARE, OTHER ==
[2022-02-25] MEDS ORDERED: ATORVASTATIN 80 MG TAB PO STA (05:58)
[2022-02-25] MEDS ORDERED: ALPRAZolam 0.25 MG TAB PO PRN (05:58)
[2022-02-25] MEDS ORDERED: HEPARIN SODIUM,PORCINE 2,500 UNIT in SODIUM CHLORIDE 0.9% 250 ML IRRIGATION PRN (05:58)
[2022-02-25] MEDS ORDERED: NITROGLYCERIN SL TABS 0.4 MG TAB SUBLINGUAL PRN (05:58)
[2022-02-25] MEDS ORDERED: SODIUM CHLORIDE 0.9% 1,000 ML in EMPTY BAG 1 BAG IV SCH (05:58)
[2022-02-25] MEDS ORDERED: HEPARIN SODIUM,PORCINE 10,000 UNIT in SODIUM CHLORIDE 0.9% 1,000 ML IRRIGATION PRN (05:58)
[2022-02-25] MEDS ORDERED: ALPRAZolam 0.5 MG TAB PO PRN (05:58)
[2022-02-25] MEDS ORDERED: ASPIRIN 325 MG TAB PO STA (05:58)
[2022-02-25] MEDS ORDERED: SODIUM CHLORIDE 0.9% 1,000 ML IV ONE (06:18)
[2022-02-25 06:33] VITALS: RESP 16; TEMP 97.1
[2022-02-25 06:38] LABS: INR 1.3 (<1.2); Prothrombin Time 13.7 sec (9.0-12.0)
[2022-02-25] MEDS ORDERED: fentaNYL (PF) 50 MCG/ML 2 ML AMP IV ONE (07:44)
[2022-02-25] MEDS ORDERED: MIDAZOLAM 2 MG/2 ML VIAL IV ONE (07:44)
[2022-02-25] MEDS ORDERED: LIDOCAINE 1% INJ 10MG/ML (30 ML VIAL-PF) SQ ONE (07:45)
[2022-02-25] MEDS ORDERED: VERAPAMIL 2.5 MG/ML 4 ML VIAL INTRAARTER ONE (07:46)
[2022-02-25] MEDS ORDERED: HEPARIN SODIUM 1,000 UN/ML (10ML VL) IV ONE (07:50)
[2022-02-25] MEDS ORDERED: IOPAMIDOL-370 125ML BTL INJ ONE (07:56)
--- NOTE | 2022-02-25 08:02 | P.CARDCATH ---
Description of Procedure: PROCEDURES PERFORMED: Left heart catheterization, bilateral coronary angiography INDICATION: Cardiomyopathy, chest pain concerning for angina CONSENT:I have discussed the risks, benefits and alternative therapies for the above-mentioned procedure and for both sedation/analgesia as well as necessary blood product administration, if indicated, as they pertain to this patient. The patient has indicated understanding and acceptance of the risks and procedures discussed. PROCEDURE: After the risks, benefits and alternatives of the above mentioned procedure explained in detail with the patient, informed consent was obtained. Patient was taken to the catheterization lab and prepped and draped in usual fashion. 1% lidocaine was used to anesthetize the right radial artery. A 6- Greek sheath was placed in the right radial artery using modified Seldinger technique. Left coronary angiography was performed with a 5-Greek JL 3.5 catheter and right coronary angiography was performed with a 5-Greek JR5 catheter in various views. A 5-Greek FR5 catheter was inserted into the left ventricle and pressure measurements were obtained. The right radial sheath was removed and a TR band was placed with hemostasis achieved. The patient tolerated the procedure well. Patient was transported back to the post catheterization holding area in stable condition. Conscious Sedation: Patient was monitored under the direct supervision of vision of myself for conscious sedation using Versed and fentanyl for a total duration of 15 minutes HEMODYNAMICS: Aorta: 108/70 LV: 108/0, LVEDP to SELECTIVE CORONARY ARTERIOGRAPHY: LEFT MAIN: The left main is a large caliber vessel which bifurcates into the LAD and circumflex. There is no significant stenosis. LEFT ANTERIOR DESCENDING CORONARY ARTERY: LAD is a large caliber vessel which wraps around to the apex. There is no significant stenosis. LEFT CIRCUMFLEX CORONARY ARTERY: Left circumflex is a moderate caliber vessel without significant stenosis. RIGHT CORONARY ARTERY: The right coronary artery is a large caliber vessel which gives off a PDA and PLV branch and is the dominant vessel. There is no significant stenosis. FINAL IMPRESSION: 1. Normal coronary arteries as described above. 2. Low left sided filling pressures PLAN: 1. Aggressive risk factor modification per most recent ACC/AHA guidelines. 2. Follow-up in the office in 1-2 weeks.
[2022-02-25 12:26] VITALS: BP 105/73; PULSE 59
== END 2022-02-25 12:31 | disposition home or self-care (01) ==
LOC: CATHCVL 05:57
PROVIDERS: ATTEND Internal Medicine
DX: I42.9 Cardiomyopathy, unspecified (principal); Z20.822 Contact with and (suspected) exposure to COVID-19; I48.19 Other persistent atrial fibrillation; E78.5 Hyperlipidemia, unspecified; Z72.0 Tobacco use; I10 Essential (primary) hypertension
CPT/HCPCS: 93458; 85610; 87635; C1769 ×2; C1894; J2250; J2001; J3010; J1644; Q9967